=== PATIENT | male | born 1955 | race Caucasian/White ===

== ENCOUNTER 2016-02-26 16:27 | Emergency (ER) | payer BC ==
[2016-02-26 17:08] LABS: #Basophils 0.1 thou/uL (0.0-0.2); #Eosinphils 0.1 thou/uL (0.0-0.7); #Monocytes 0.7 thou/uL (0.11-0.59); #Neutrophils 6.5 thou/uL (1.40-6.50); %Basophils 0.7 % (0.0-1.0); %Eosinophils 0.7 % (0.0-10.0); %Monocytes 7.7 % (0.0-10.0); Hematocrit 51.1 % (42.0-52.0); Mean Platelet Volume 8.1 fL (7.4-10.4); Red Blood Cell (RBC) Count 5.62 mill/uL (4.70-6.10); White Blood Cell (WBC) Count 9.4 thou/uL (4.8-10.8)
[2016-02-26 17:23] LABS: ALT (SGPT) 37 U/L (0-55); AST (SGOT) 24 U/L (5-34); Alkaline Phosphatase 102 U/L (40-150); Anion Gap 16 mmol/L (10-20); BUN (Urea Nitrogen) 15 mg/dL (8.4-25.7); Bilirubin, Total 1.1 mg/dL (0.2-1.2); Calc. Creatinine Clearance 0 mL/min (70-130); Calcium 9.5 mg/dL (7.8-10.44); Carbon Dioxide 22 mmol/L (23-31); Chloride 101 mmol/L (98-107); Estimated GFR-MDRD 66; Globulin 3.3 g/dL (2.4-3.5); Protein, Total 7.2 g/dL (5.8-8.1)
[2016-02-26 17:30] LABS: Troponin I 0.016 ng/mL (< 0.028)
[2016-02-26 17:44] LABS: Bilirubin Negative (Negative); Blood, Urine Negative (Negative); Glucose, Urine (Dipstick) 500 mg/dL (Negative); Ketone, Urine Negative (Negative); Nitrite Negative (Negative); Protein, Urine (Dipstick) Negative (Neg-Trace); Urobilinogen 0.2 mg/dL (0.2-1.0)
[2016-02-26 17:45] LABS: RBC/HPF None Seen HPF (0-3)
[2016-02-26 17:46] LABS: Bacteria/HPF None Seen HPF (None Seen); Squamous Epithelial None Seen HPF (0-3); WBC/HPF None Seen HPF (0-3)
--- NOTE | 2016-02-26 18:50 | ERRECORD ---
[facility] EMERGENCY RECORD HPI WEAK-DIZZY (16:46 WMEI) CHIEF COMPLAINT: Patient presents for evaluation of weakness, Denies dizziness, Denies mental status changes, Patient presents for evaluation of shaky x 5 days. HISTORIAN: History provided by patient, niddm doesn't check sugars at home. LOCATION: Symptoms are generalized. QUALITY: Patient is alert and oriented to person, place and time, Ilda coma score is 15. TIME COURSE: Gradual onset of symptoms, 5, days priror to arrival. ASSOCIATED WITH: No associated chest pain, No associated fever, No associated headache, No associated upper respiratory infection. EXACERBATED BY: Patient's condition exacerbated by nothing. RELIEVED BY: Patient's condition relieved by nothing. ROS (16:47 WMEI) CONSTITUTIONAL: Historian denies chills, denies fever, reports weakness. EYES: Historian denies eye pain, denies eye discharge. ENT: Historian denies otalgia, reports rhinorrhea, denies sore throat. CARDIOVASCULAR: Historian denies chest pain, no radiation. RESPIRATORY: Historian denies cough, denies shortness of breath. GI: Historian denies abdominal pain, reports appetite changes. MUSCULOSKELETAL: Historian denies back pain, denies injury. SKIN: Historian reports skin changes, reports skin lesions. chronic fungal skin infection. NEUROLOGIC: Historian denies confusion, denies dizziness, denies mental status changes. PSYCHIATRIC: Historian denies alcohol abuse, reports anxiety, denies depression. PAST MEDICAL HISTORY (16:34 CTUR) MEDICAL HISTORY: Flu vaccine not up to date, Tetanus not up to date, Pneumococcal vaccine not up to date, Flu vaccine not up to date, Tetanus not up to date, Pneumococcal vaccine not up to date, Past medical history includes history of diabetes, hx of angioedema, Past medical history includes history of hypertension. Past medical history includes history of diabetes, hx of angioedema, Past medical history includes history of hypertension, Past medical history includes history of diabetes, Past medical history includes history of hypertension, which has been treated, Patient is compliaNT. 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 reviewed 02/01/15. verified 02/26/16. MALE SURGICAL HISTORY: heart cath twenty years ago. CARDIAC CATH. reviewed 02/01/15. 02/26/16. PSYCHIATRIC HISTORY: No previous psychiatric history. No previous psychiatric history. reviewed 02/01/15. verified 02/26/16. &a-1R&a+25V*p+0X*f7129R*c202B*c15G*c2P*p-0X&a-25V&a+1R Name: Berto Romo : 1955 M61 MedRec: [id number] AcctNum: [id number] Prepared: Angelina Feb 26, 2016 21:54 by Interface Page 1 of 3 pMD [facility] EMERGENCY RECORD SOCIAL HISTORY: Patient denies alcohol use, Patient denies drug use, Patient has no smoking history. Patient denies alcohol use, Patient denies drug use, Patient has no smoking history. reviewed 02/01/15. verified 02/26/16. KNOWN ALLERGIES No Known Allergies (Unconfirmed) No Known Drug Allergies CURRENT MEDICATIONS (16:35 CTUR) hydrochlorothiazide: TABLET : Strength - 25 mg : ORAL Patient Dose: 25 mg Oral once a day. omeprazole: CAPSULE,DELAYED RELEASE (ENTERIC COATED) : Strength - 20 mg : ORAL Patient Dose: 40 mg Oral once a day. VITAL SIGNS VITAL SIGNS: Pulse: 114, Resp: 24, Temp: 98.7 (Oral), Pain: 0, O2 sat: 96 on Room Air, Time: 02/26/2016 16:31. (16:31 CTUR) BP: 139/93, Time: 02/26/2016 16:35. (16:35 CTUR) BP: 116/83, Pulse: 101, Resp: 20, Pain: 0, O2 sat: 96 on Room Air, Time: 02/26/2016 17:09. (17:09 CTUR) BP: 109/87, Pulse: 103, Resp: 18, Temp: 98.3 (Oral), Pain: 0, O2 sat: 96 on Room Air, Time: 02/26/2016 18:39. (18:39 CTUR) PHYSICAL EXAM (16:48 WMEI) CONSTITUTIONAL: Vital signs reviewed, Patient appears non toxic, Patient alert and oriented to person, place and time. HEAD: Head exam included findings of head atraumatic, normocephalic. EYES: Extraocular muscles intact, Conjunctiva normal, Sclera normal. ENT: Ear exam normal, Nose exam normal, Pharynx exam normal. NECK: Neck exam included findings of normal range of motion, Trachea midline. RESPIRATORY CHEST: Breath sounds clear, Rales present, Chest exam included findings of chest movement symmetrical. CARDIOVASCULAR: Cardiovascular exam included findings of heart rate regular rate and rhythm, Heart sounds normal. ABDOMEN MALE: Abdominal exam included findings of abdomen nontender, Bowel sounds normal, no distension. UPPER EXTREMITY: Upper extremity exam included findings of inspection normal, Range of motion normal, Motor strength normal. LOWER EXTREMITY: Lower extremity exam included findings of inspection normal, Range of motion normal, Motor strength normal. NEURO: Ilda coma scale 15, Neuro exam findings include patient oriented to person, place and time, Speech normal, Gait normal. SKIN: Skin exam included findings of skin warm, dry, and normal in color. &a-1R&a+25V*p+0X*u1450R*c202B*c15G*c2P*p-0X&a-25V&a+1R Name: Berto Romo : 1955 M61 MedRec: [id number] AcctNum: [id number] Prepared: Angelina Feb 26, 2016 21:54 by Interface Page 2 of 3 pMD [facility] EMERGENCY RECORD LYMPHATIC: Lymphatic exam normal. PSYCHIATRIC: Psychiatric exam included findings of patient oriented to person place and time, Normal affect, Judgment normal, Insight normal. MEDICATION ADMINISTRATION SUMMARY Drug Name: *sodium chloride 0.9 % intravenous, Dose Ordered: 1 L, Route: IV Fluid Infusion, Status: Given, Time: 17:00 02/26/2016, *Additional information available in notes, Detailed record available in Medication Service section. DOCTOR NOTES (18:23 WMEI) TEXT: feels better encouraged to drink fluids. PROBLEM LIST No recorded problems DIAGNOSIS (18:23 WMEI) FINAL: PRIMARY: MUSCLE WEAKNESS GENERALIZED, ADDITIONAL: DEHYDRATION. PRESCRIPTION No recorded prescriptions DISPOSITION PATIENT: Disposition Type: Discharge, Disposition: *Discharge Home. (18:23 WMEI) Patient left the department. (18:40 CTUR) Falk: CTUR=SCOUT Crespo Christin WMEI=DO Lai William &a-1R&a+25V*p+0X*x1311V*c202B*c15G*c2P*p-0X&a-25V&a+1R Name: Berto Romo : 1955 M61 MedRec: [id number] AcctNum: [id number] Prepared: Angelina Feb 26, 2016 21:54 by Interface Page 3 of 3 pMD MTDD
--- NOTE | 2016-02-26 18:59 | PICIS ---
[facility] EMERGENCY RECORD TRIAGE (16:30 CTUR) TRIAGE NOTES: Pt reports feeling shaky and having high blood sugar since noon, pt reports he has only eaten one egg, four pieces of spam and a slice of bread. Deneis vision problems. (16:30 CTUR) PATIENT: NAME: Berto Romo, AGE: 61, GENDER: male, : Sun 1955, TIME OF GREET: Sun Feb 26, 2016 16:28, PREFERRED LANGUAGE: Indian, ETHNICITY: Not or , ECODE BILLING MAP: [facility], SSN: [id number], Zip Code: [address], PHONE: , , , PERSON ID: [id number], PAYMENT: [employer] [place]. (16:30 CTUR) KG WEIGHT: 95.3 (est.). (16:48 LFOS) ADMISSION: URGENCY: 3 Urgent, ADMISSION SOURCE: Home, TRANSPORT: CAR, BED: TRIAGE. (16:30 CTUR) SIRS SCORING: Heart Rate 110-139 (2), Temp range 96.8-101.1 (0), respiratory rate 12-24 (0), Mental Status altered: no (0), Total SIRS Score 2. (16:34 CTUR) TRIAGE SCREENING: Patient denies suicidal ideation, Patient denies presence of domestic violence. (16:34 CTUR) PROVIDERS: TRIAGE NURSE: Rohini Crespo RN. (16:30 CTUR) VITAL SIGNS: Pulse 114, Resp 24, Temp 98.7, (Oral), Pain 0, O2 Sat 96, on Room Air, Time 02/26/2016 16:31. (16:31 CTUR) PREVIOUS VISIT ALLERGIES: No Known Drug Allergies. (16:30 CTUR) No Known Drug Allergies. (16:34 CTUR) KNOWN ALLERGIES No Known Allergies (Unconfirmed) No Known Drug Allergies CURRENT MEDICATIONS (16:35 CTUR) hydrochlorothiazide: TABLET : Strength - 25 mg : ORAL Patient Dose: 25 mg Oral once a day. omeprazole: CAPSULE,DELAYED RELEASE (ENTERIC COATED) : Strength - 20 mg : ORAL Patient Dose: 40 mg Oral once a day. VITAL SIGNS VITAL SIGNS: Pulse: 114, Resp: 24, Temp: 98.7 (Oral), Pain: 0, O2 sat: 96 on Room Air, Time: 02/26/2016 16:31. (16:31 CTUR) BP: 139/93, Time: 02/26/2016 16:35. (16:35 CTUR) BP: 116/83, Pulse: 101, Resp: 20, Pain: 0, O2 sat: 96 on Room Air, Time: 02/26/2016 17:09. (17:09 CTUR) BP: 109/87, Pulse: 103, Resp: 18, Temp: 98.3 (Oral), Pain: 0, O2 sat: 96 on Room Air, Time: 02/26/2016 18:39. (18:39 CTUR) NURSING ASSESSMENT: FALL RISK (17:32 CTUR) FALL RISK: Fall risk assessment findings include: no history of falls (0), No bed rest greater than 2 days (0), No use of level of &a-1R&a+25V*p+0X*u5112Y*c202B*c15G*c2P*p-0X&a-25V&a+1R Name: Berto Romo : 1955 M61 MedRec: [id number] AcctNum: [id number] Prepared: Angelina Feb 26, 2016 22:00 by Interface Page 1 of 8 pMD [facility] EMERGENCY RECORD consciousness altering agents with mentation or cognitive changes (0), No change in blood pressure (0), Sensory deficits (1), Impaired mobility (3), No neurologic diagnosis (0), No elimination problems (0), No confusion (0), Total score 4. NURSING ASSESSMENT: NEURO (17:06 CTUR) GCS: (6) Obeying command:, (5) Orientated:, (4) Spontaneous eye opening., Result: 15. NIHSS: CVA assessment findings: Level of consciousness: alert, keenly responsive (0), Questions: answers both questions correctly (0), Commands: performs both tasks correctly (0), Best gaze: normal (0), Visual: no visual loss (0), Facial palsy: normal symmetrical movement (0), Motor Left Arm: no drift, arm stays 90/45 degrees for full 10 seconds (0), Motor Right Arm: no drift, arm stays 90/45 degrees for full 10 seconds (0), Motor left leg: no drift, leg stays at 30 degrees for full five seconds (0), Motor right leg: no drift, leg stays at 30 degrees for full five seconds (0), Limb ataxia absent (0), Sensory: normal, no sensory loss (0), Best language: no aphasia; normal (0), Dysarthria: normal (0), Extinction and Inattention: normal (0), Total score 0. CONSTITUTIONAL: Complex assessment performed, Patient arrives ambulatory, Gait steady, History obtained from patient, Patient appears comfortable, Patient cooperative, Patient alert, Oriented to person, place and time, Skin warm, Skin dry, Skin normal in color, Mucous membranes pink, Mucous membranes moist, Patient complains of Weakness/SHaky/Elevated Blood sugar. NONVERBAL PAIN: Non-Verbal pain assessment findings include: No non-verbal complaints while at rest (0), Non-Verbal complaints not present with movement (0), Facial Grimaces not present at rest (0), Facial grimaces not present with movement (0), Bracing not present at rest (0), Bracing not present with movement (0), Restlessness not present at rest (0), Restlessness not present with movement (0), Rubbing not present at rest (0), Rubbing not present with movement (0), Result: 0. NEURO: Pupils equally round and reactive to light, Left pupil 3 mm in size, Right pupil 3 mm in size, Able to close eyes, Face symmetrical, Speech normal, no ptosis, no nystagmus, no visual changes, no facial droop, no facial numbness, no swelling, no paresthesias, Hand grasps equal, Upper extremity strength strong, no numbness to upper extremities, Lower extremity strength strong, Foot press equal, no numbness to lower extremities. SAFETY: Side rails up, Cart/Stretcher in lowest position, Call light within reach, Hospital ID band on. NURSING PROCEDURE: BEDSIDE TESTING PATIENT IDENTIFIER: Patient actively involved in identification process, Patient's identity verified by patient stating name, Patient's identity verified by patient stating date, Patient's identity verified by hospital ID bracelet. (17:52 CTUR) GLUCOSE: Glucose testing indicated for diabetic patient, &a-1R&a+25V*p+0X*x6573V*c202B*c15G*c2P*p-0X&a-25V&a+1R Name: Berto Romo : 1955 M61 MedRec: [id number] AcctNum: [id number] Prepared: Angelina Feb 26, 2016 22:00 by Interface Page 2 of 8 pMD [facility] EMERGENCY RECORD Capillary blood sample, Result (mg/dl) 237. (16:30 LGIB) Glucose testing indicated for diabetic patient, Capillary blood sample, Result (mg/dl) 189. (17:52 CTUR) SAFETY: Side rails up, Cart/Stretcher in lowest position, Call light within reach, Hospital ID band on. (17:52 CTUR) NURSING PROCEDURE: DISCHARGE NOTE (18:39 CTUR) DISCHARGE: Patient discharged to home, ambulating without assistance, driving self, unaccompanied, Summary of Care printed/ provided, Transition record given to patient, Discharge instructions given to patient, Simple or moderate discharge teaching performed, by SCOUT Urbano, Above person(s) verbalized understanding of discharge instructions and follow-up care, Patient treated and evaluated by physician. BELONGINGS: Belongings and valuables with patient upon arrival to the Emergency Department include:, Belongings and valuables with patient at time of discharge include:, Belongings remain with patient, Valuables remain with patient. SAFETY: Side rails up, Cart/Stretcher in lowest position, Call light within reach, Hospital ID band on. NURSING PROCEDURE: IV PATIENT IDENITIFIER: Patient actively involved in identification process, Patient's identity verified by patient stating name, Patient's identity verified by patient stating date, Patient's identity verified by hospital ID bracelet. (16:45 CTUR) IV SITE 1: IV therapy indicated for hydration, IV therapy indicated for medication administration, IV established, to the right forearm, using an 18 gauge catheter, in one attempt, IV site prepped with chloraprep, Saline lock established, Flushed with normal saline (mls): 10, Notes: By SCOUT Saunders. (16:45 CTUR) FOLLOW-UP SITE 1: After procedure, 2x2 dressing applied, IV discontinued, due to patient being discharged, catheter intact. (18:34 CTUR) SAFETY: Side rails up, Cart/Stretcher in lowest position, Call light within reach, Hospital ID band on. (16:45 CTUR) NURSING PROCEDURE: ORTHOSTATIC VITAL SIGNS (17:41 CTUR) PATIENT IDENTIFIER: Patient actively involved in identification process, Patient's identity verified by patient stating name, Patient's identity verified by patient stating date, Patient's identity verified by hospital ID bracelet. ORTHOSTATIC VITAL SIGNS: Orthostatic vital signs indicated for dizziness, Lying:, Blood pressure: 124/89, Pulse: 95, No dizziness, Sitting:, Blood pressure: 153/102, Pulse: 107, No dizziness with position change, Standing:, Blood pressure: 139/103, Pulse: 108, No dizziness with position change, pt tolerated well, Notes: pt tolerated well denies dizzienss. FOLLOW-UP: After procedure, results given to Dr. Lai. SAFETY: Side rails up, Cart/Stretcher in lowest position, Call &a-1R&a+25V*p+0X*q5108A*c202B*c15G*c2P*p-0X&a-25V&a+1R Name: Berto Romo : 1955 M61 MedRec: [id number] AcctNum: [id number] Prepared: Angelina Feb 26, 2016 22:00 by Interface Page 3 of 8 pMD [facility] EMERGENCY RECORD light within reach, Hospital ID band on. NURSING PROCEDURE: URINE COLLECTION (17:36 CTUR) PATIENT IDENTIFIER: Patient actively involved in identification process, Patient's identity verified by patient stating name, Patient's identity verified by patient stating date, Patient's identity verified by hospital ID bracelet. URINE COLLECTION MALE: Urine collected by void, output amount (mL) 400, urine clear in color, and clear, Specimen labeled in the presence of the patient and sent to lab, Specimen obtained for culture labeled in the presence of the patient and sent to lab. SAFETY: Side rails up, Cart/Stretcher in lowest position, Call light within reach, Hospital ID band on. ORDER DETAILS Order Name: Cardiac Profile w/CKMB & Troponin - I, Status: Active, Time: 16:44 02/26/2016, User: WMEI, - Ordered for: DO Lai William, - Entered by: DO Lai William - Angelina Feb 26, 2016 16:44, - Quantity: 1, Order Name: CBC with Differential, Status: Active, Time: 16:44 02/26/2016, User: WMEI, - Ordered for: DO Lai William, - Entered by: DO Lai William - Angelina Feb 26, 2016 16:44, - Quantity: 1, Order Name: Comprehensive Metabolic Panel, Status: Active, Time: 16:44 02/26/2016, User: WMEI, - Ordered for: DO Lai William, - Entered by: DO Lai William - Angelina Feb 26, 2016 16:44, - Quantity: 1, Order Name: EKG 12 Lead in Emergency Room, Status: Active, Time: 16:44 02/26/2016, User: WMEI, - Ordered for: DO Lai William, - Entered by: DO Lai William - Angelina Feb 26, 2016 16:44, - Quantity: 1, Order Name: SALINE LOCK, Status: Done, Time: 16:48 02/26/2016, User: LGIB, - Ordered for: DO Lai William, - Entered by: DO Lai William - Angelina Feb 26, 2016 16:44, - Quantity: 1, Order Name: Urinalysis with Microscopic, Status: Active, Time: 16:45 02/26/2016, User: WMEI, - Ordered for: DO Lai William, - Entered by: DO Lai William - Sun Feb 26, 2016 16:45, - Quantity: 1. MEDICATION ADMINISTRATION SUMMARY Drug Name: *sodium chloride 0.9 % intravenous, Dose Ordered: 1 L, &a-1R&a+25V*p+0X*d6983Z*c202B*c15G*c2P*p-0X&a-25V&a+1R Name: Berto Romo : 1955 M61 MedRec: [id number] AcctNum: [id number] Prepared: Angelina Feb 26, 2016 22:00 by Interface Page 4 of 8 D [facility] EMERGENCY RECORD Route: IV Fluid Infusion, Status: Given, Time: 17:00 02/26/2016, *Additional information available in notes, Detailed record available in Medication Service section. MEDICATION SERVICE sodium chloride 0.9 % intravenous: Order: sodium chloride 0.9 % intravenous (0.9 % sodium chloride) - Dose: 1 L : IV Fluid Infusion Notes: (Bolus) Ordered by: Taj Lai DO Entered by: Taj Lai DO [place] Feb 26, 2016 16:45 , Acknowledged by: Aydee Kincaid RN [place] Feb 26, 2016 16:48 Documented as given by: Rohini Crespo RN [place] Feb 26, 2016 17:00 Patient, Medication, Dose, Route and Time verified prior to administration. Amount given: 1000m:L, IV SITE #1 IV fluids established for hydration, IV SITE #1 into right forearm, IV SITE #1 1st bag hung, amount 1 Liter hung, via primary tubing, Catheter placement confirmed via flush prior to administration, IV site without signs or symptoms of infiltration during medication administration, No swelling during administration, No drainage during administration, IV flushed after administration, Correct patient, time, route, dose and medication confirmed prior to administration, Patient advised of actions and side-effects prior to administration, Allergies confirmed and medications reviewed prior to administration, Patient in position of comfort, Side rails up, Cart in lowest position. : Follow Up : Response assessment performed, No signs or symptoms of allergic reaction noted, Increased urine output, _IV SITE #1:_, IV fluid infusion discontinued, on SatFeb 26, 2016 17:31, 35 minutes, ., Total amount infused: 1000mL, Advised not to ambulate without assistance, Patient in position of comfort, Side rails up, Cart in lowest position. (17:31 CTUR) HPI WEAK-DIZZY (16:46 WMEI) CHIEF COMPLAINT: Patient presents for evaluation of weakness, Denies dizziness, Denies mental status changes, Patient presents for evaluation of shaky x 5 days. HISTORIAN: History provided by patient, niddm doesn't check sugars at home. LOCATION: Symptoms are generalized. QUALITY: Patient is alert and oriented to person, place and time, Ilda coma score is 15. TIME COURSE: Gradual onset of symptoms, 5, days priror to arrival. ASSOCIATED WITH: No associated chest pain, No associated fever, No associated headache, No associated upper respiratory infection. EXACERBATED BY: Patient's condition exacerbated by nothing. RELIEVED BY: Patient's condition relieved by nothing. ROS (16:47 WMEI) &a-1R&a+25V*p+0X*p3066P*c202B*c15G*c2P*p-0X&a-25V&a+1R Name: Berto Romo : 1955 M61 MedRec: [id number] AcctNum: [id number] Prepared: Angelina Feb 26, 2016 22:00 by Interface Page 5 of 8 pMD [facility] EMERGENCY RECORD CONSTITUTIONAL: Historian denies chills, denies fever, reports weakness. EYES: Historian denies eye pain, denies eye discharge. ENT: Historian denies otalgia, reports rhinorrhea, denies sore throat. CARDIOVASCULAR: Historian denies chest pain, no radiation. RESPIRATORY: Historian denies cough, denies shortness of breath. GI: Historian denies abdominal pain, reports appetite changes. MUSCULOSKELETAL: Historian denies back pain, denies injury. SKIN: Historian reports skin changes, reports skin lesions. chronic fungal skin infection. NEUROLOGIC: Historian denies confusion, denies dizziness, denies mental status changes. PSYCHIATRIC: Historian denies alcohol abuse, reports anxiety, denies depression. PAST MEDICAL HISTORY (16:34 CTUR) MEDICAL HISTORY: Flu vaccine not up to date, Tetanus not up to date, Pneumococcal vaccine not up to date, Flu vaccine not up to date, Tetanus not up to date, Pneumococcal vaccine not up to date, Past medical history includes history of diabetes, hx of angioedema, Past medical history includes history of hypertension. Past medical history includes history of diabetes, hx of angioedema, Past medical history includes history of hypertension, Past medical history includes history of diabetes, Past medical history includes history of hypertension, which has been treated, Patient is compliaNT. 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 reviewed 02/01/15. verified 02/26/16. MALE SURGICAL HISTORY: heart cath twenty years ago. CARDIAC CATH. reviewed 02/01/15. 02/26/16. PSYCHIATRIC HISTORY: No previous psychiatric history. No previous psychiatric history. reviewed 02/01/15. verified 1/08/17. SOCIAL HISTORY: Patient denies alcohol use, Patient denies drug use, Patient has no smoking history. Patient denies alcohol use, Patient denies drug use, Patient has no smoking history. reviewed 02/01/15. verified 02/26/16. PHYSICAL EXAM (16:48 WMEI) CONSTITUTIONAL: Vital signs reviewed, Patient appears non toxic, Patient alert and oriented to person, place and time. HEAD: Head exam included findings of head atraumatic, normocephalic. EYES: Extraocular muscles intact, Conjunctiva normal, Sclera normal. ENT: Ear exam normal, Nose exam normal, Pharynx exam normal. NECK: Neck exam included findings of normal range of motion, Trachea midline. RESPIRATORY CHEST: Breath sounds clear, Rales present, &a-1R&a+25V*p+0X*b4483B*c202B*c15G*c2P*p-0X&a-25V&a+1R Name: Berto Romo : 1955 M61 MedRec: [id number] AcctNum: [id number] Prepared: Angelina Feb 26, 2016 22:00 by Interface Page 6 of 8 pMD [facility] EMERGENCY RECORD Chest exam included findings of chest movement symmetrical. CARDIOVASCULAR: Cardiovascular exam included findings of heart rate regular rate and rhythm, Heart sounds normal. ABDOMEN MALE: Abdominal exam included findings of abdomen nontender, Bowel sounds normal, no distension. UPPER EXTREMITY: Upper extremity exam included findings of inspection normal, Range of motion normal, Motor strength normal. LOWER EXTREMITY: Lower extremity exam included findings of inspection normal, Range of motion normal, Motor strength normal. NEURO: [place] coma scale 15, Neuro exam findings include patient oriented to person, place and time, Speech normal, Gait normal. SKIN: Skin exam included findings of skin warm, dry, and normal in color. LYMPHATIC: Lymphatic exam normal. PSYCHIATRIC: Psychiatric exam included findings of patient oriented to person place and time, Normal affect, Judgment normal, Insight normal. EVENTS TRANSFER: Triage to Emergency Triage. (Angelina Feb 26, 2016 16:30 CTUR) Emergency Triage to Emergency Room -03. (16:31 CTUR) Removed from Emergency Emergency Room -03. (18:40 CTUR) DOCTOR NOTES (18:23 WMEI) TEXT: feels better encouraged to drink fluids. PROBLEM LIST No recorded problems DIAGNOSIS (18:23 WMEI) FINAL: PRIMARY: MUSCLE WEAKNESS GENERALIZED, ADDITIONAL: DEHYDRATION. DISPOSITION PATIENT: Disposition Type: Discharge, Disposition: *Discharge Home. (18:23 WMEI) Patient left the department. (18:40 CTUR) INSTRUCTION (18:23 WMEI) DISCHARGE: DEHYDRATION (4Y-ADULT), DIABETES HYPOGLYCEMIA ORAL AGENT. FOLLOWUP: Jose G MCBRIDE, [facility] [address], [facility] [id number], [phone]. SPECIAL: Follow-up with your PCP. PRESCRIPTION No recorded prescriptions IMAGING &a-1R&a+25V*p+0X*a4260J*c202B*c15G*c2P*p-0X&a-25V&a+1R Name: ClarissaAlyssa bryantharlan Tello : 1955 [facility] MedRec: [id number] AcctNum: [id number] Prepared: Angelina Feb 26, 2016 22:00 by Interface Page 7 of 8 pMD [facility] EMERGENCY RECORD *EKG: Image captured from scanner. (17:56 LGIB) *DISCHARGE INSTRUCTIONS RECEIPT: Image captured from scanner. (18:41 CTUR) *SUPPLY CHARGE SHEET: Image captured from scanner. (18:41 CTUR) ADMIN (21:48 WMEI) DIGITAL SIGNATURE: DO Lai William. Falk: CTUR=SCOUT Crespo Christin LFOS=Noe, REGISTRAR, Soheila Michaels LGIB=SCOUT Kincaid Lauren WMEI=DO Lai William &a-1R&a+25V*p+0X*h2120O*c202B*c15G*c2P*p-0X&a-25V&a+1R Name: Clarissa, Berto W : 1955 1 MedRec: [id number] AcctNum: [id number] Prepared: Angelina Feb 26, 2016 22:00 by Interface Page 8 of 8 pMD MTDD
== END 2016-02-26 18:35 | disposition home or self-care (01) ==
LOC: BURERS 16:27
DX: M62.81 Muscle weakness (generalized) (principal); E86.0 Dehydration; E11.9 Type 2 diabetes mellitus without complications; I10 Essential (primary) hypertension; K21.9 Gastro-esophageal reflux disease without esophagitis
CPT/HCPCS: 36416; 80053; 81001; 82553; 84484; 85025; 93005; 96360

== ENCOUNTER 2016-02-28 08:54 | Emergency (ER) | payer BC ==
[2016-02-28] MEDS ORDERED: Ondansetron ODT 4 MG TAB ONE (09:20)
[2016-02-28 10:05] LABS: #Basophils 0.1 thou/uL (0.0-0.2); #Lymphocytes 1.4 thou/uL (1.20-3.40); #Monocytes 0.8 thou/uL (0.11-0.59); #Neutrophils 8.1 thou/uL (1.40-6.50); %Basophils 0.6 % (0.0-1.0); %Eosinophils 0.3 % (0.0-10.0); %Monocytes 7.6 % (0.0-10.0); Hematocrit 47.3 % (42.0-52.0); Mean Platelet Volume 8.6 fL (7.4-10.4); Red Blood Cell (RBC) Count 5.21 mill/uL (4.70-6.10); White Blood Cell (WBC) Count 10.3 thou/uL (4.8-10.8)
[2016-02-28 10:08] LABS: Bilirubin Negative (Negative); Blood, Urine Negative (Negative); Glucose, Urine (Dipstick) Negative (Negative); Ketone, Urine 15 mg/dL (Negative); Nitrite Negative (Negative); Protein, Urine (Dipstick) Negative (Neg-Trace); Urobilinogen 0.2 mg/dL (0.2-1.0)
[2016-02-28 10:18] LABS: ALT (SGPT) 34 U/L (0-55); AST (SGOT) 26 U/L (5-34); Alkaline Phosphatase 91 U/L (40-150); Anion Gap 15 mmol/L (10-20); BUN (Urea Nitrogen) 12 mg/dL (8.4-25.7); Bilirubin, Total 1.3 mg/dL (0.2-1.2); Calc. Creatinine Clearance 0 mL/min (70-130); Calcium 9.3 mg/dL (7.8-10.44); Carbon Dioxide 21 mmol/L (23-31); Chloride 98 mmol/L (98-107); Estimated GFR-MDRD Greater than 90; Globulin 3.2 g/dL (2.4-3.5); Lipase 32 U/L (8-78); Protein, Total 7.1 g/dL (5.8-8.1); Troponin I Less than 0.010 ng/mL (< 0.028)
[2016-02-28 10:19] LABS: RBC/HPF 0-3 HPF (0-3)
[2016-02-28 10:21] LABS: Bacteria/HPF Rare-Few HPF (None Seen); Squamous Epithelial 0-3 HPF (0-3); WBC/HPF 0-3 HPF (0-3)
--- NOTE | 2016-02-28 10:56 | ERRECORD ---
[facility] EMERGENCY RECORD HPI NAUSEA/VOMITING/DIARRHEA (09:18 DHA) CHIEF COMPLAINT: Patient presents for evaluation of nausea, Patient presents for evaluation of vomiting, Number of times: 4 this am, dry heaves, Patient presents for evaluation of diarrhea, Number of times: 4 times yesterday, described as watery stools, Patient presents for evaluation of dry mouth. HISTORIAN: History provided by patient. LOCATION MALE: Symptoms are localized, most severe in the epigastrium, no radiation, No migration of pain. QUALITY: Pain is dull in nature, described as cramping. SEVERITY: Currently there are no symptoms. TIME COURSE: Gradual onset of symptoms, 4, days priror to arrival, Symptoms are improving, are intermittent, Pt is here for his 4th visit in the last 5 days. Started with just feeling shaky and yesterday was seen with diarrhea and had "lots of tests done at [facility]." He is here this morning due to 4 episodes of emesis that he says was dry heaves. ASSOCIATED WITH MALE: No associated recent antibiotic use, No associated chills, No associated constipation, Associated with diarrhea, Number of times: 4 yest, No associated fever, No associated flank pain, No associated loss of appetite, No associated melena, Associated with nausea, No associated night sweats, No associated testicular pain, No associated recent travel, No associated inability to tolerate oral intake, No associated urinary tract infection signs or symptoms, Associated with vomiting, Number of times: 4 this morning, ate 2 eggs and a piece of steak this morning and "lots of water last night". EXACERBATED BY: Patient's condition exacerbated by food. RELIEVED BY: Patient's condition relieved by nothing. ROS (09:18 [facility]) CONSTITUTIONAL: Historian denies chills, denies fatigue, denies fever. had some sweats early this morning but does not think he had a fever. EYES: Negative eye review of systems, Historian denies eye pain, denies eye redness. ENT: Negative ears, nose, throat review of systems. CARDIOVASCULAR: Historian denies chest pain, denies dyspnea on exertion, denies syncope. RESPIRATORY: Historian denies cough, denies shortness of breath, denies sputum. GI: Historian reports abdominal pain, reports appetite changes, reports diarrhea, reports nausea, reports vomiting. GENITOURINARY MALE: Historian denies dysuria, denies urinary frequency, denies urinary urgency. MUSCULOSKELETAL: Historian denies arthralgias, denies myalgias, denies neck pain. &a-1R&a+25V*p+0X*[id number]*c202B*c15G*c2P*p-0X&a-25V&a+1R Name: Berto Romo : 1955 M61 MedRec: [id number] AcctNum: [id number] Prepared: Elza Feb 28, 2016 20:02 by Interface Page 1 of 4 pMD [facility] EMERGENCY RECORD SKIN: Historian denies cellulitis, reports rash, reports skin lesions. rash on bilat arms has been there for 1-2 years and may be spreading a bit. does not itch. occas scaly at the borders. NEUROLOGIC: Historian denies confusion, denies headache, denies paresthesias. PSYCHIATRIC: Historian denies anxiety, denies depression. NOTES: All systems reviewed, negative except as described above. PAST MEDICAL HISTORY (: LGIB) MEDICAL HISTORY: Past medical history includes gastrointestinal disease, gastroesophageal reflux disease, Flu vaccine not up to date, Tetanus not up to date, Pneumococcal vaccine not up to date, Past medical history includes history of diabetes, hx of angioedema, Past medical history includes history of hypertension. MALE SURGICAL HISTORY: heart cath twenty years ago. PSYCHIATRIC HISTORY: No previous psychiatric history. SOCIAL HISTORY: Patient denies alcohol use, Patient denies drug use, Patient has no smoking history. KNOWN ALLERGIES No Known Drug Allergies CURRENT MEDICATIONS hydrochlorothiazide: TABLET : Strength - 25 mg : ORAL Patient Dose: 25 mg Oral once a day. (: LGIB) omeprazole: CAPSULE,DELAYED RELEASE (ENTERIC COATED) : Strength - 20 mg : ORAL Patient Dose: 40 mg Oral once a day. (: LGIB) metFORMIN: TABLET, EXTENDED RELEASE 24 HR : Strength - 500 mg : ORAL Patient Dose: 1 tab(s) Oral once a day.2 tabs at night. (: LGIB) Benadryl: CAPSULE : Strength - 25 mg : ORAL Patient Dose: 2 tab(s) Oral every 4 hours prn. (: LGIB) VITAL SIGNS VITAL SIGNS: BP: 164/105, Pulse: 99, Resp: 18 (Non-Labored), O2 sat: 97 on Room Air, Time: 02/28/2016 08:59. (08:59 [facility]) Temp: 98 (Oral), Time: 02/28/2016 09:05. (09:05 [facility]) Pain: 1.5, Time: 02/28/2016 09:21. (09:21 [facility]) BP: 114/92, Pulse: 93, Resp: 18, O2 sat: 97, Time: 02/28/2016 10:04. (10:04 ASA) BP: 131/88, Pulse: 99, Resp: 18, Temp: 98.0, Pain: 1, O2 sat: 99, Time: 02/28/2016 10:43. (10:43 [facility]) PHYSICAL EXAM (09:18 [facility]) &a-1R&a+25V*p+0X*[id number]*c202B*c15G*c2P*p-0X&a-25V&a+1R Name: Berto Romo Omer : 1955 M61 MedRec: [id number] AcctNum: [id number] Prepared: Elza Feb 28, 2016 20:02 by Interface Page 2 of 4 pMD [facility] EMERGENCY RECORD CONSTITUTIONAL: Vital signs reviewed, Patient afebrile, Pulse normal, Blood pressure, hypertensive, Respiratory rate normal, Patient appears non toxic, Patient appears pain free, Patient alert and oriented to person, place and time, seems a bit anxious. HEAD: Head exam normal, Head exam included findings of head atraumatic. EYES: Eye exam included findings of eyelids normal to inspection, Pupils equally round and reactive to light, Extraocular muscles intact, Conjunctiva normal. ENT: Ear exam normal, external ear normal, tympanic membranes normal, no drainage, Nose exam normal, no nasal deformity, Pharynx exam normal, Uvula exam normal, Tonsil exam normal, Mouth exam normal, mucous membranes moist, teeth normal, no nasal congestion or rhinorrhea. NECK: Neck exam normal, Neck exam included findings of normal range of motion, Thyroid normal, no jugular venous distention, no cervical adenopathy. RESPIRATORY CHEST: Breath sounds clear, No wheezing, Rales present, to the left lower lobe, No rhonchi, Breath sounds otherwise clear. CARDIOVASCULAR: Cardiovascular exam included findings of heart rate regular rate and rhythm, Heart sounds normal, Point of maximal impulse normal. ABDOMEN MALE: Abdominal exam included findings of abdomen nontender, Bowel sounds normal, Liver normal, Spleen normal, no distension, no mass, no peritoneal signs. UPPER EXTREMITY: Upper extremity exam normal, Radial pulse normal. LOWER EXTREMITY: Lower extremity exam normal, Lower extremity exam included findings of inspection normal, Range of motion normal. NEURO: [place] coma scale 15, Neuro exam findings include patient oriented to person, place and time, Speech normal, Gait normal, Cranial nerves intact. SKIN: Skin exam included findings of skin warm, dry, and normal in color, Rash present, bilat forearms with irregular raised erythematous bordered lesions. there is no scaling at this time but remarkable central clearing of these circular lesions. borders are very well demarcated and this central clearing almost appears atrophic and hypopigmented. the lesions are 8-12cm in diameter and irregular and number 8-10 on each forearm with sparing of the palms. PSYCHIATRIC: Psychiatric exam included findings of patient oriented to person place and time, Normal affect, Judgment normal, Insight normal. EKG INTERPRETATION (09:40 DHAM) 12 LEAD EKG INTERPRETATION: 12 lead EKG interpreted by Emergency Department Physician at time of study, 12 lead EKG shows normal sinus rhythm, Rate (beats per minute): 100, with no ectopics, Conduction &a-1R&a+25V*p+0X*d7006V*c202B*c15G*c2P*p-0X&a-25V&a+1R Name: Berto Rmoo : 1955 M61 MedRec: [id number] AcctNum: [id number] Prepared: SatFeb 28, 2016 20:02 by Interface Page 3 of 4 pMD [facility] EMERGENCY RECORD normal, ST segments normal, T waves normal, [place] normal, Clinical impression: Normal EKG. RADIOLOGYINTERPRETATION (09:44 [facility]) CHEST: Chest films negative, no infiltrates, no pneumothorax, no hemothorax, no masses, no cardiomegaly, no congestive heart failure, no effusion, no free air, elevated right hemidiaphragm. ABDOMEN: Obstructive series films negative, normal small bowel gas pattern, no air fluid levels, no free air. MEDICATION ADMINISTRATION SUMMARY Drug Name: *Zofran ODT, Dose Ordered: 1 tab(s), Route: Oral, Status: Given, Time: 09:21 02/28/2016, *Additional information available in notes, Detailed record available in Medication Service section. DOCTOR NOTES (10:32 DHAM) TEXT: Pt's labs, xrays and ekg are pretty reassuring. His Na is low and he tells me this has occurred previously. I suspect due to hctz with oral fluid replacement with water only. will increase sodium intake and recheck 48 hours. see dci. Pt appears euvolemic and really was not nauseated though I did give some Zofran due to his n/v this morning. PROBLEM LIST No recorded problems DIAGNOSIS (10:38 DHAM) FINAL: PRIMARY: viral gastroenteritis, ADDITIONAL: Hyponatremia, tinea corporis. PRESCRIPTION (10:39 DHAM) Zofran ODT: TABLET, RAPID DISSOLVE : 4 mg : ORAL : Quantity: 4 Unit: mg Route: ORAL Schedule: every 6 hours PRN Dispense: 10 Unit: tab(s) May substitute. Refills: No Refills . NOTES: Zofran 4mg ODT take 1 tab q6h prn No refills. DISPOSITION PATIENT: Disposition Type: Discharge, Disposition: *Discharge Home. (10:35 DHA) Patient left the department. (10:47 [facility]) Falk: [facility]=SCOUT Shaikh, May [facility]=MD Gume, Jaziel [facility]=SCOUT Kincaid, Aydee &a-1R&a+25V*p+0X*[id number]*c202B*c15G*c2P*p-0X&a-25V&a+1R Name: Berto Romo : 1955 M61 MedRec: [id number] AcctNum: [id number] Prepared: Elza Feb 28, 2016 20:02 by Interface Page 4 of 4 pMD MTDD
--- NOTE | 2016-02-28 11:07 | PICIS ---
[facility] EMERGENCY RECORD TRIAGE (SatFeb 28, 2016 09:00 LGIB) TRIAGE NOTES: can't keep any food down since this morning. was seen in the ER 2 days ago. (SatFeb 28, 2016 09:00 LGIB) PATIENT: NAME: Berto Romo, AGE: 61, GENDER: male, : Sat1955, TIME OF GREET: SatFeb 28, 2016 08:55, PREFERRED LANGUAGE: Egyptian, ETHNICITY: Not or , ECODE BILLING MAP: [facility], SSN: [id number], Zip Code: [address], KG WEIGHT: [phone], PHONE: , , , PERSON ID: [id number], PAYMENT: [employer], PCP: Jose G MCBRIDE STEPHEN. (SatFeb 28, 2016 09:00 LGIB) COMPLAINT: vomiting. (SatFeb 28, 2016 09:00 LGIB) ADMISSION: URGENCY: 3 Urgent, ADMISSION SOURCE: Home, TRANSPORT: CAR, BED: TRIAGE. (SatFeb 28, 2016 09:00 LGIB) SIRS SCORING: Heart Rate 55-109 (0), Temp range 96.8-101.1 (0), respiratory rate 12-24 (0), Mental Status altered: no (0), Total SIRS Score 0. (09:05 LGIB) PROVIDERS: TRIAGE NURSE: Aydee Kincaid RN. (SatFeb 28, 2016 09:00 LGIB) VITAL SIGNS: BP 164/105, Pulse 99, Resp 18, (Non-Labored), O2 Sat 97, on Room Air, Time 02/28/2016 08:59. (08:59 LGIB) PREVIOUS VISIT ALLERGIES: No Known Drug Allergies. (SatFeb 28, 2016 09:00 LGIB) No Known Drug Allergies. (09:10 LGIB) KNOWN ALLERGIES No Known Drug Allergies CURRENT MEDICATIONS hydrochlorothiazide: TABLET : Strength - 25 mg : ORAL Patient Dose: 25 mg Oral once a day. (09:21 LGIB) omeprazole: CAPSULE,DELAYED RELEASE (ENTERIC COATED) : Strength - 20 mg : ORAL Patient Dose: 40 mg Oral once a day. (09:21 LGIB) metFORMIN: TABLET, EXTENDED RELEASE 24 HR : Strength - 500 mg : ORAL Patient Dose: 1 tab(s) Oral once a day.2 tabs at night. (09:21 LGIB) Benadryl: CAPSULE : Strength - 25 mg : ORAL Patient Dose: 2 tab(s) Oral every 4 hours prn. (09:22 LGIB) VITAL SIGNS VITAL SIGNS: BP: 164/105, Pulse: 99, Resp: 18 (Non-Labored), O2 sat: 97 on Room Air, Time: 02/28/2016 08:59. (08:59 LGIB) Temp: 98 (Oral), Time: 02/28/2016 09:05. (09:05 LGIB) Pain: 1.5, Time: 02/28/2016 09:21. (09:21 LGIB) BP: 114/92, Pulse: 93, Resp: 18, O2 sat: 97, Time: 02/28/2016 10:04. (10:04 ASA) BP: 131/88, Pulse: 99, Resp: 18, Temp: 98.0, Pain: 1, O2 sat: 99, Time: &a-1R&a+25V*p+0X*b1141I*c202B*c15G*c2P*p-0X&a-25V&a+1R Name: Berto Romo : 1955 M61 MedRec: [id number] AcctNum: [id number] Prepared: Elza Feb 28, 2016 20:02 by Interface Page 1 of 10 pMD [facility] EMERGENCY RECORD 02/28/2016 10:43. (10:43 [facility]) NURSING ASSESSMENT: ABDOMEN (09:26 ASA) CONSTITUTIONAL: Patient arrives ambulatory, Gait steady, History obtained from patient, Patient appears comfortable, Patient cooperative, Patient alert, Oriented to person, place and time, Skin warm, Skin normal in color, Mucous membranes pink, Patient complains of Nausa and vomiting. PAIN: cramping pain, entire abdomin, on a scale 0-10 patient rates pain as 1, Pain exacerbated by nothing, Nothing has been tried to alleviate the pain. ABDOMEN: Abdomen assessment findings include abdomen symmetrical, Abdomen soft, Associated with nausea, Associated with vomiting. SAFETY: Side rails up, Cart/Stretcher in lowest position, Call light within reach, Hospital ID band on. NURSING PROCEDURE: BEDSIDE TESTING (09:47 ASA) PATIENT IDENTIFIER: Patient actively involved in identification process, Patient's identity verified by patient stating name, Patient's identity verified by patient stating date, Patient's identity verified by hospital ID bracelet. GLUCOSE: Glucose testing indicated for diabetic patient, Capillary blood sample, Result (mg/dl) 140. SAFETY: Side rails up, Cart/Stretcher in lowest position, Call light within reach, Hospital ID band on. NURSING PROCEDURE: DISCHARGE NOTE (10:43 ASA) DISCHARGE: Patient discharged to home, ambulating without assistance, driving self, unaccompanied, Summary of Care printed/ provided, Patient requested and was provided an electronic copy of Discharge Instructions, Discharge instructions given to patient, Simple or moderate discharge teaching performed, by ester, rn, Prescriptions given and instructions on side effects given, Name of prescription(s) given: zofran 4mg ODT, Above person(s) verbalized understanding of discharge instructions and follow-up care. SAFETY: Side rails up, Cart/Stretcher in lowest position, Call light within reach, Hospital ID band on. VITAL SIGNS: BP: 131, / 88, Pulse: 99, Resp: 18, Temp: 98.0, Pain: 1, O2 sat: 99, Time: 1039. NURSING PROCEDURE: EKG CHART (09:44 ASA) PATIENT IDENTIFIER: Patient actively involved in identification process, Patient's identity verified by patient stating name, Patient's identity verified by patient stating date, Patient's identity verified by hospital ID bracelet. EKG: EKG indicated for Nausea and Vomiting. FOLLOW-UP: After procedure, EKG for interpretation given to Dr. Dunaway. SAFETY: Side rails up, Cart/Stretcher in lowest position, Call &a-1R&a+25V*p+0X*j7471P*c202B*c15G*c2P*p-0X&a-25V&a+1R Name: Berto Romo Omer : 1955 M61 MedRec: [id number] AcctNum: [id number] Prepared: Elza Feb 28, 2016 20:02 by Interface Page 2 of 10 pMD [facility] EMERGENCY RECORD light within reach, Hospital ID band on. NURSING PROCEDURE: NURSE NOTES (10:04 [facility]) VITAL SIGNS: BP: 114, / 92, Pulse: 93, Resp: 18, O2 sat: 97. NURSING PROCEDURE: URINE COLLECTION (09:46 [facility]) PATIENT IDENTIFIER: Patient actively involved in identification process, Patient's identity verified by patient stating name, Patient's identity verified by patient stating date, Patient's identity verified by hospital ID bracelet. URINE COLLECTION MALE: Urine collection indicated for Nausea and Vomiting, Urine collected by void, output amount (mL) 25 ml, urine clear in color, and clear, Specimen labeled in the presence of the patient and sent to lab. SAFETY: Side rails up, Cart/Stretcher in lowest position, Call light within reach, Hospital ID band on. ORDER DETAILS Order Name: BLOOD GLUCOSE MONITOR, Status: Done, Time: 09:22 02/28/2016, User: YANETH, - Ordered for: MD Dunaway Darren, - Entered by: MD Dunaway Darren - Tue Feb 28, 2016 09:16, - Quantity: 1, Order Name: Cardiac Profile w/CKMB & Troponin - I, Status: Active, Time: 09:16 02/28/2016, User: GUS, - Ordered for: MD Dunaway Darren, - Entered by: MD Dunaway Darren - Tue Feb 28, 2016 09:16, - Quantity: 1, Order Name: CBC with Differential, Status: Active, Time: 09:16 02/28/2016, User: GUS, - Ordered for: MD Dunaway Darren, - Entered by: MD Dunaway Darren - Tue Feb 28, 2016 09:16, - Quantity: 1, Order Name: Comprehensive Metabolic Panel, Status: Active, Time: 09:16 02/28/2016, User: GUS, - Ordered for: MD Dunaway Darren, - Entered by: MD Dunaway Darren - Tue Feb 28, 2016 09:16, - Quantity: 1, Order Name: EKG 12 Lead in Emergency Room, Status: Active, Time: 09:16 02/28/2016, User: GUS, - Ordered for: MD Dunaway Darren, - Entered by: MD Dunaway Darren - Tue Feb 28, 2016 09:16, - Quantity: 1, Order Name: ERRT Pulse Oximeter ER, Status: Active, Time: 09:16 02/28/2016, User: GUS, - Ordered for: MD Dunaway Darren, - Entered by: MD Dunaway Darren - Tue Feb 28, 2016 09:16, - Quantity: 1, Order Name: Lipase, Status: Active, Time: 09:16 02/28/2016, User: &a-1R&a+25V*p+0X*q5682J*c202B*c15G*c2P*p-0X&a-25V&a+1R Name: Berto Romo : 1955 M61 MedRec: [id number] AcctNum: [id number] Prepared: SatFeb 28, 2016 20:02 by Interface Page 3 of 10 pMD [facility] EMERGENCY RECORD GUS, - Ordered for: MD Dunaway Darren, - Entered by: MD Dunaway Darren - Tue Feb 28, 2016 09:16, - Quantity: 1, Order Name: SALINE LOCK, Status: Canceled, Time: 09:23 02/28/2016, User: MORRISIB, - Ordered for: MD Dunaway Darren, - Entered by: MD Dunaway Darren - Tue Feb 28, 2016 09:16, - Quantity: 1, Order Name: Urinalysis with Microscopic, Status: Active, Time: 09:16 02/28/2016, User: GUS, - Ordered for: MD Dunaway Darren, - Entered by: MD Dnuaway Darren - Tue Feb 28, 2016 09:16, - Quantity: 1, Order Name: XR Abdomen 2 View/1 View Cxr, Status: Active, Time: 09:18 02/28/2016, User: GUS, - Ordered for: MD Dunaway Darren, - Entered by: MD Dunaway Darren - Tue Feb 28, 2016 09:18, - Quantity: 1. MEDICATION ADMINISTRATION SUMMARY Drug Name: *Zofran ODT, Dose Ordered: 1 tab(s), Route: Oral, Status: Given, Time: 09:21 02/28/2016, *Additional information available in notes, Detailed record available in Medication Service section. MEDICATION SERVICE Zofran ODT: Order: Zofran ODT (ondansetron) - Dose: 1 tab(s) : Oral Schedule: Now Notes: 4mg now SL Ordered by: Jaziel Dunaway MD Entered by: Jaziel Dunaway MD SatFeb 28, 2016 09:16 , Acknowledged by: Ester Shaikh RN SatFeb 28, 2016 09:19 Documented as given by: Ester Shaikh RN SatFeb 28, 2016 09:21 Patient, Medication, Dose, Route and Time verified prior to administration. Amount given: 4mg, Amount wasted: 0, Site: Medication administered P.O., Correct patient, time, route, dose and medication confirmed prior to administration, Patient advised of actions and side-effects prior to administration, Allergies confirmed and medications reviewed prior to administration, Patient in position of comfort, Side rails up, Cart in lowest position. : Follow Up : No signs or symptoms of allergic reaction noted. (10:43 [facility]) HPI NAUSEA/VOMITING/DIARRHEA (09:18 [facility]) CHIEF COMPLAINT: Patient presents for evaluation of nausea, Patient presents for evaluation of vomiting, Number of times: 4 this am, dry heaves, &a-1R&a+25V*p+0X*y3005L*c202B*c15G*c2P*p-0X&a-25V&a+1R Name: Berto Romo : 1955 M61 MedRec: [id number] AcctNum: [id number] Prepared: SatFeb 28, 2016 20:02 by Interface Page 4 of 10 pMD [facility] EMERGENCY RECORD Patient presents for evaluation of diarrhea, Number of times: 4 times yesterday, described as watery stools, Patient presents for evaluation of dry mouth. HISTORIAN: History provided by patient. LOCATION MALE: Symptoms are localized, most severe in the epigastrium, no radiation, No migration of pain. QUALITY: Pain is dull in nature, described as cramping. SEVERITY: Currently there are no symptoms. TIME COURSE: Gradual onset of symptoms, 4, days priror to arrival, Symptoms are improving, are intermittent, Pt is here for his 4th visit in the last 5 days. Started with just feeling shaky and yesterday was seen with diarrhea and had "lots of tests done at [facility]." He is here this morning due to 4 episodes of emesis that he says was dry heaves. ASSOCIATED WITH MALE: No associated recent antibiotic use, No associated chills, No associated constipation, Associated with diarrhea, Number of times: 4 yest, No associated fever, No associated flank pain, No associated loss of appetite, No associated melena, Associated with nausea, No associated night sweats, No associated testicular pain, No associated recent travel, No associated inability to tolerate oral intake, No associated urinary tract infection signs or symptoms, Associated with vomiting, Number of times: 4 this morning, ate 2 eggs and a piece of steak this morning and "lots of water last night". EXACERBATED BY: Patient's condition exacerbated by food. RELIEVED BY: Patient's condition relieved by nothing. ROS (09:18 DHA) CONSTITUTIONAL: Historian denies chills, denies fatigue, denies fever. had some sweats early this morning but does not think he had a fever. EYES: Negative eye review of systems, Historian denies eye pain, denies eye redness. ENT: Negative ears, nose, throat review of systems. CARDIOVASCULAR: Historian denies chest pain, denies dyspnea on exertion, denies syncope. RESPIRATORY: Historian denies cough, denies shortness of breath, denies sputum. GI: Historian reports abdominal pain, reports appetite changes, reports diarrhea, reports nausea, reports vomiting. GENITOURINARY MALE: Historian denies dysuria, denies urinary frequency, denies urinary urgency. MUSCULOSKELETAL: Historian denies arthralgias, denies myalgias, denies neck pain. SKIN: Historian denies cellulitis, reports rash, reports skin lesions. rash on bilat arms has been there for 1-2 years and may be spreading a bit. does not itch. occas scaly at the borders. &a-1R&a+25V*p+0X*y3243F*c202B*c15G*c2P*p-0X&a-25V&a+1R Name: Berto Romo : 1955 M61 MedRec: [id number] AcctNum: [id number] Prepared: Elza Feb 28, 2016 20:02 by Interface Page 5 of 10 D [facility] EMERGENCY RECORD NEUROLOGIC: Historian denies confusion, denies headache, denies paresthesias. PSYCHIATRIC: Historian denies anxiety, denies depression. NOTES: All systems reviewed, negative except as described above. PAST MEDICAL HISTORY (09:10 IB) MEDICAL HISTORY: Past medical history includes gastrointestinal disease, gastroesophageal reflux disease, Flu vaccine not up to date, Tetanus not up to date, Pneumococcal vaccine not up to date, Past medical history includes history of diabetes, hx of angioedema, Past medical history includes history of hypertension. MALE SURGICAL HISTORY: heart cath twenty years ago. PSYCHIATRIC HISTORY: No previous psychiatric history. SOCIAL HISTORY: Patient denies alcohol use, Patient denies drug use, Patient has no smoking history. PHYSICAL EXAM (09:18 DHAM) CONSTITUTIONAL: Vital signs reviewed, Patient afebrile, Pulse normal, Blood pressure, hypertensive, Respiratory rate normal, Patient appears non toxic, Patient appears pain free, Patient alert and oriented to person, place and time, seems a bit anxious. HEAD: Head exam normal, Head exam included findings of head atraumatic. EYES: Eye exam included findings of eyelids normal to inspection, Pupils equally round and reactive to light, Extraocular muscles intact, Conjunctiva normal. ENT: Ear exam normal, external ear normal, tympanic membranes normal, no drainage, Nose exam normal, no nasal deformity, Pharynx exam normal, Uvula exam normal, Tonsil exam normal, Mouth exam normal, mucous membranes moist, teeth normal, no nasal congestion or rhinorrhea. NECK: Neck exam normal, Neck exam included findings of normal range of motion, Thyroid normal, no jugular venous distention, no cervical adenopathy. RESPIRATORY CHEST: Breath sounds clear, No wheezing, Rales present, to the left lower lobe, No rhonchi, Breath sounds otherwise clear. CARDIOVASCULAR: Cardiovascular exam included findings of heart rate regular rate and rhythm, Heart sounds normal, Point of maximal impulse normal. ABDOMEN MALE: Abdominal exam included findings of abdomen nontender, Bowel sounds normal, Liver normal, Spleen normal, no distension, no mass, no peritoneal signs. UPPER EXTREMITY: Upper extremity exam normal, Radial pulse normal. LOWER EXTREMITY: Lower extremity exam normal, Lower extremity exam included findings of inspection normal, Range of motion normal. NEURO: Ilda coma scale 15, Neuro exam findings include patient &a-1R&a+25V*p+0X*g2299T*c202B*c15G*c2P*p-0X&a-25V&a+1R Name: Berto Romo : 1955 M61 MedRec: [id number] AcctNum: [id number] Prepared: SatFeb 28, 2016 20:02 by Interface Page 6 of 10 pMD [facility] EMERGENCY RECORD oriented to person, place and time, Speech normal, Gait normal, Cranial nerves intact. SKIN: Skin exam included findings of skin warm, dry, and normal in color, Rash present, bilat forearms with irregular raised erythematous bordered lesions. there is no scaling at this time but remarkable central clearing of these circular lesions. borders are very well demarcated and this central clearing almost appears atrophic and hypopigmented. the lesions are 8-12cm in diameter and irregular and number 8-10 on each forearm with sparing of the palms. PSYCHIATRIC: Psychiatric exam included findings of patient oriented to person place and time, Normal affect, Judgment normal, Insight normal. EVENTS TRANSFER: Triage to Emergency Triage. (SatFeb 28, 2016 09:00 LGIB) Emergency Triage to Emergency Room -02. (09:01 LGIB) Removed from Emergency Emergency Room -02. (10:47 [facility]) RADIOLOGYINTERPRETATION (09:44 DHAM) CHEST: Chest films negative, no infiltrates, no pneumothorax, no hemothorax, no masses, no cardiomegaly, no congestive heart failure, no effusion, no free air, elevated right hemidiaphragm. ABDOMEN: Obstructive series films negative, normal small bowel gas pattern, no air fluid levels, no free air. EKG INTERPRETATION (09:40 DHAM) 12 LEAD EKG INTERPRETATION: 12 lead EKG interpreted by Emergency Department Physician at time of study, 12 lead EKG shows normal sinus rhythm, Rate (beats per minute): 100, with no ectopics, Conduction normal, ST segments normal, T waves normal, [place] normal, Clinical impression: Normal EKG. O2SAT INTERPRETATION (09:40 DHAM) O2SAT: Single pulse oximetry, Oxygen saturation 97%, on room air, Oxygen saturation interpretation: Normal, No intervention required. DOCTOR NOTES (10:32 DHAM) TEXT: Pt's labs, xrays and ekg are pretty reassuring. His Na is low and he tells me this has occurred previously. I suspect due to hctz with oral fluid replacement with water only. will increase sodium intake and recheck 48 hours. see dci. Pt appears euvolemic and really was not nauseated though I did give some Zofran due to his n/v this morning. PROBLEM LIST No recorded problems DIAGNOSIS (10:38 DHAM) &a-1R&a+25V*p+0X*m9030R*c202B*c15G*c2P*p-0X&a-25V&a+1R Name: Berto Romo : 1955 M61 MedRec: [id number] AcctNum: [id number] Prepared: Elza Feb 28, 2016 20:02 by Interface Page 7 of 10 pMD [facility] EMERGENCY RECORD FINAL: PRIMARY: viral gastroenteritis, ADDITIONAL: Hyponatremia, tinea corporis. DISPOSITION PATIENT: Disposition Type: Discharge, Disposition: *Discharge Home. (10:35 DHAM) Patient left the department. (10:47 [facility]) INSTRUCTION (10:37 DHAM) DISCHARGE: VIRAL GASTROENT 4 YR ADULT, HYPONATREMIA. FOLLOWUP: Jose G MCBRIDE, HOLLIE, [facility], [address] [facility] [address], [id number]. SPECIAL: Zofran 4mg ODT one every six hours as needed for Nausea/vomiting. Hold your hydrochlorothiazide for 48 hours. RECHECK YOUR SODIUM IN 48 HOURS WITH YOUR PCP OR HERE. INCREASE YOUR SODIUM INTAKE DISCUSSED. Oral rehydration with small volumes of gatorade or powerade frequently. [place] diet with no milk or caffeine. Return for signs of dehydration that we discussed, persistent nausea/vomiting. Return for fevers >2-3 days or other concerns Use Lamisil daily for 3 weeks to rash. PRESCRIPTION (10:39 DHAM) Zofran ODT: TABLET, RAPID DISSOLVE : 4 mg : ORAL : Quantity: 4 Unit: mg Route: ORAL Schedule: every 6 hours PRN Dispense: 10 Unit: tab(s) May substitute. Refills: No Refills . NOTES: Zofran 4mg ODT take 1 tab q6h prn No refills. IMAGING *EKG: Image captured from scanner. (09:44 ASA) *DISCHARGE INSTRUCTIONS RECEIPT: Image captured from scanner. (10:46 ASA) *SUPPLY CHARGE SHEET: Image captured from scanner. (10:46 [facility]) ADMIN DIGITAL SIGNATURE: SCOUT Shaikh, May. (10:46 ASA) MD Dunaway Darren. (19:59 DHAM) RESULTS LABORATORY: Accuchek Collection DT: SatFeb 28, 2016 09:45, *Accuc[place]k 140 - H mg/dL, Range (70-110). (10:15 DHAM) CBC with Differential Collection DT: SatFeb 28, 2016 10:07, White Blood Cell (WBC) Count 10.3 thou/uL, Range (4.8-10.8), Red Blood Cell (RBC) Count 5.21 mill/uL, Range (4.70-6.10), Hemoglobin 15.6 g/dL, Range (14.0-18.0), &a-1R&a+25V*p+0X*y3648U*c202B*c15G*c2P*p-0X&a-25V&a+1R Name: Berto Romo : 1955 M61 MedRec: [id number] AcctNum: [id number] Prepared: SatFeb 28, 2016 20:02 by Interface Page 8 of 10 pMD [facility] EMERGENCY RECORD Hematocrit 47.3 %, Range (42.0-52.0), Mean Corpuscular Volume 91.0 fl, Range (80.0-94.0), Mean Corpuscular Hemoglobin 30.0 pg, Range (27.0-31.0), Mean Corpuscular HGB CONC 33.0 g/dL, Range (32.0-36.0), RBC Distribution Width 11.5 %, Range (11.5-14.5), Platelet Count 203 thou/uL, Range (130-400), Mean Platelet Volume 8.6 fL, Range (7.4-10.4), *%Neutrophils 78.1 - H %, Range (42.0-75.0), *%Lymphocytes 13.4 - L %, Range (21.0-51.0), %Monocytes 7.6 %, Range (0.0-10.0), %Eosinophils 0.3 %, Range (0.0-10.0), %Basophils 0.6 %, Range (0.0-1.0), *#Neutrophils 8.1 - H thou/uL, Range (1.40-6.50), #Lymphocytes 1.4 thou/uL, Range (1.20-3.40), *#Monocytes 0.8 - H thou/uL, Range (0.11-0.59), #Eosinphils 0.0 thou/uL, Range (0.0-0.7), #Basophils 0.1 thou/uL, Range (0.0-0.2). (10:24 DHAM) Cardiac Profile w/CKMB & TropI Collection DT: SatFeb 28, 2016 10:07, CKMB 3.8 ng/mL, Range (0-6.6), Troponin I Less than 0.010 ng/mL, Range (< 0.028), Reference Range , 0.00 - 0.028 ng/mL Negative 0.029 - 0.29 ng/mL , Indeterminate Greater or Equal to 0.3 ng/mL Strongly suggests [place] , . (10:24 DHAM) Lipase Collection DT: SatFeb 28, 2016 10:07, Lipase 32 U/L, Range (8-78). (10:24 DHAM) Comprehensive Metabolic Panel Collection DT: SatFeb 28, 2016 10:07, *Sodium 130 - L mmol/L, Range (136-145), Potassium 3.8 mmol/L, Range (3.5-5.1), Chloride 98 mmol/L, Range (98-107), *Carbon Dioxide 21 - L mmol/L, Range (23-31), Anion Gap 15 mmol/L, Range (10-20), BUN (Urea Nitrogen) 12 mg/dL, Range (8.4-25.7), Creatinine 0.81 mg/dL, Range (0.7-1.3), Estimated GFR-MDRD Greater than 90 , Reference Range for Estimated GFR: Greater than 90, mL/min/1.73 m2 NOTE: The MDRD equation has not been validated for use, with the elderly (over 70 years of age), women, patients with, serious comorbid condition or persons with extremes of body size, muscle, mass, or nutritional status. , *Glucose 153 - H mg/dL, Range (80-115), Calcium 9.3 mg/dL, Range (7.8-10.44), *Bilirubin, Total 1.3 - H mg/dL, Range (0.2-1.2), Protein, Total 7.1 g/dL, Range (5.8-8.1), NOTE: Plasma values are &a-1R&a+25V*p+0X*h8831M*c202B*c15G*c2P*p-0X&a-25V&a+1R Name: Berto Romo Omer : 1955 M61 MedRec: [id number] AcctNum: [id number] Prepared: SatFeb 28, 2016 20:02 by Interface Page 9 of 10 pMD [facility] EMERGENCY RECORD generally 0.3 to 0.5 g/dL higher than serum values, due to the presence of fibrinogen. , Albumin 3.9 g/dL, Range (3.4-4.8), Globulin 3.2 g/dL, Range (2.4-3.5), Alb/Glob Ratio 1.2 g/dL, Range (1.2-2.2), Alkaline Phosphatase 91 U/L, Range (40-150), AST (SGOT) 26 U/L, Range (5-34), ALT (SGPT) 34 U/L, Range (0-55). (10:24 DHAM) Urinalysis with Microscopic Collection DT: SatFeb 28, 2016 10:08, Color [place] , Range (Yellow), Clarity Slightly Cloudy , Range (Clear), *Specific [place], Urine 1.004 - L , Range (1.005-1.030), pH, Urine 5.0 , Range (5.0-9.0), Leukocyte Negative , Range (Negative), Nitrite Negative , Range (Negative), Protein, Urine (Dipstick) Negative mg/dL, Range (Neg-Trace), Glucose, Urine (Dipstick) Negative mg/dL, Range (Negative), *Ketone, Urine 15 - H mg/dL, Range (Negative), Urobilinogen 0.2 mg/dL, Range (0.2-1.0), Bilirubin Negative , Range (Negative), Blood, Urine Negative , Range (Negative), RBC/HPF 0-3 HPF, Range (0-3), WBC/HPF 0-3 HPF, Range (0-3), Squamous Epithelial 0-3 HPF, Range (0-3), Bacteria/HPF Rare-Few HPF, Range (None Seen). (10:28 [facility]) Falk: [facility]=SCOUT Shaikh, May [facility]=MD Gume, Jaziel LGIB=SCOUT Kincaid, Aydee &a-1R&a+25V*p+0X*m2563V*c202B*c15G*c2P*p-0X&a-25V&a+1R Name: ClarissaAlyssaharlan Tello : 1955 M61 MedRec: [id number] AcctNum: [id number] Prepared: Elza Feb 28, 2016 20:02 by Interface Page 10 of 10 pMD MTDD
--- NOTE | 2016-02-28 12:22 | RAD ---
ACUTE ABDOMEN SERIES: Date: 02-28-16 FINDINGS: The bowel gas pattern is normal. There are no distended loops to suggest obstruction. A moderate i ncrease of stool is seen in the colon. No important calcifications were seen. Scoliosis with sever e degenerative changes is evident, particularly in the lumbar spine. The chest film in the series is compared with a 01-30-15 exam. The right hemidiaphragm is perhaps a little more elevated than it sometimes is, but this also could be due to lack of a deep inspiration . No definite lobar infiltrates or effusions were seen. There might be a little linear atelectasis in the right base. The heart size is normal. IMPRESSION: No acute abdominal findings. POS: HOME
== END 2016-02-28 10:39 | disposition home or self-care (01) ==
LOC: BURERS 08:54
DX: A08.4 Viral intestinal infection, unspecified (principal); E87.1 Hypo-osmolality and hyponatremia; B35.4 Tinea corporis; K21.9 Gastro-esophageal reflux disease without esophagitis; I10 Essential (primary) hypertension; E11.9 Type 2 diabetes mellitus without complications
CPT/HCPCS: 36416; 74022; 80053; 81001; 82553; 83690; 84484; 85025; 93005; 94760; 36415-59; Q0162

== ENCOUNTER 2016-03-01 19:46 | Emergency (ER) | payer BC ==
[2016-03-01 20:40] LABS: Anion Gap 14 mmol/L (10-20); BUN (Urea Nitrogen) 11 mg/dL (8.4-25.7); Calc. Creatinine Clearance 0 mL/min (70-130); Calcium 9.2 mg/dL (7.8-10.44); Carbon Dioxide 24 mmol/L (23-31); Chloride 100 mmol/L (98-107); Estimated GFR-MDRD Greater than 90
--- NOTE | 2016-03-01 21:05 | ERRECORD ---
[facility] EMERGENCY RECORD HPI WEAK-DIZZY (SatMar 02, 2016 08:41 WMEI) CHIEF COMPLAINT: Patient presents for evaluation of weakness, Patient presents for evaluation of dizziness, Denies mental status changes. HISTORIAN: History provided by patient, PT RECENT DX OF HYPONATREMIA HCTZ STOPPED 2 DAYS AGO TO REPEAT LAB IN A FEW DAYS HOWEVER NOTICED INCREASINED BP AND TOOK HCTZ FEEL BETTER NOW THAT BP IS COMING DOWN. LOCATION: Symptoms are generalized. QUALITY: Patient is alert and oriented to person, place and time, Ilda coma score is 15, Described as similar to previous episodes. TIME COURSE: Gradual onset of symptoms, Symptoms are improving. ASSOCIATED WITH: No associated chest pain, No associated fever. EXACERBATED BY: Patient's condition exacerbated by nothing. RELIEVED BY: Patient's condition relieved by nothing. ROS (SatMar 02, 2016 08:46 WMEI) CONSTITUTIONAL: Historian denies chills, denies fever. EYES: Historian denies eye pain, denies eye discharge. ENT: Historian denies rhinorrhea, denies sore throat. CARDIOVASCULAR: Historian denies chest pain, no radiation. RESPIRATORY: Historian denies cough, denies shortness of breath. GI: Historian denies diarrhea, denies nausea, denies vomiting. GENITOURINARY MALE: Historian denies dysuria, denies urinary urgency. MUSCULOSKELETAL: Historian denies joint stiffness, denies joint swelling. SKIN: Historian denies skin changes, denies skin lesions. NEUROLOGIC: Historian reports dizziness, denies mental status changes. PSYCHIATRIC: Historian denies alcohol abuse, denies depression, denies drug abuse. PAST MEDICAL HISTORY (19:57 MMAN) MEDICAL HISTORY: Past medical history includes gastrointestinal disease, gastroesophageal reflux disease, Flu vaccine not up to date, Tetanus not up to date, Pneumococcal vaccine not up to date, Past medical history includes history of diabetes, hx of angioedema, Past medical history includes history of hypertension. Verified 03/01/2016. MALE SURGICAL HISTORY: heart cath twenty years ago. Verified 03/01/2016. PSYCHIATRIC HISTORY: No previous psychiatric history. Verified 03/01/2016. SOCIAL HISTORY: Patient denies alcohol use, Patient denies drug use, Patient has no smoking history. Verified 03/01/2016. KNOWN ALLERGIES No Known Allergies (Unconfirmed) No Known Drug Allergies &a-1R&a+25V*p+0X*b5682N*c202B*c15G*c2P*p-0X&a-25V&a+1R Name: Berto Romo : 1955 M61 MedRec: [id number] AcctNum: [id number] Prepared: SatMar 02, 2016 08:51 by Interface Page 1 of 3 pMD [facility] EMERGENCY RECORD CURRENT MEDICATIONS hydrochlorothiazide: TABLET : Strength - 25 mg : ORAL Patient Dose: 25 mg Oral once a day.DID NOT TAKE FOR 36 HOURS, TOOK [employer]ES TO ER. (20:08 AADK) omeprazole: CAPSULE,DELAYED RELEASE (ENTERIC COATED) : Strength - 20 mg : ORAL Patient Dose: 40 mg Oral once a day. (20:08 AADK) metFORMIN: TABLET, EXTENDED RELEASE 24 HR : Strength - 500 mg : ORAL Patient Dose: 1 tab(s) Oral once a day.2 tabs at night. (20:08 AADK) Benadryl: CAPSULE : Strength - 25 mg : ORAL Patient Dose: 2 tab(s) Oral every 4 hours prn. (20:10 AADK) Zofran ODT: TABLET,DISINTEGRATING : Strength - 4 mg : ORAL Patient Dose: 4 mg Oral every 6 hours PRN. (20:10 AADK) lisinopril: TABLET : Strength - 10 mg : ORAL Patient Dose: 10 mg Oral once a day (in the morning). (20:10 AADK) EpiPen: AUTO-INJECTOR (EA) : Strength - 0.3 mg/0.3 mL (1:1,000) : INJECTION Patient Dose: Subcutaneous As Needed. (20:11 AADK) VITAL SIGNS VITAL SIGNS: BP: 169/108, Pulse: 82, Resp: 18, Temp: 97.8 (Oral), Pain: 0, O2 sat: 95 on Room Air, Time: 03/01/2016 19:54. (19:54 MMAN) BP: 156/103, Pulse: 78, Resp: 18, Pain: 0, O2 sat: 95 on RA, Time: 03/01/2016 20:00. (20:00 AADK) BP: 140/90, Pulse: 78, Resp: 16, Temp: 98.0, Pain: 0, O2 sat: 96 on RA, Time: 03/01/2016 20:54. (20:54 MMAN) PHYSICAL EXAM (SatMar 02, 2016 08:47 WMEI) CONSTITUTIONAL: Vital signs reviewed, Patient appears non toxic, Patient appears pain free, Patient alert and oriented to person, place and time. HEAD: Head exam included findings of head atraumatic, normocephalic. EYES: Extraocular muscles intact, Conjunctiva normal, Sclera normal. ENT: Ear exam normal, Nose exam normal, Pharynx exam normal. NECK: Neck exam included findings of normal range of motion, Trachea midline. RESPIRATORY CHEST: Breath sounds clear, Chest exam included findings of chest movement symmetrical. CARDIOVASCULAR: Cardiovascular exam included findings of heart rate regular rate and rhythm, Heart sounds normal. &a-1R&a+25V*p+0X*k8062O*c202B*c15G*c2P*p-0X&a-25V&a+1R Name: Berto Romo : 1955 M61 MedRec: [id number] AcctNum: [id number] Prepared: SatMar 02, 2016 08:51 by Interface Page 2 of 3 pMD [facility] EMERGENCY RECORD ABDOMEN MALE: Abdominal exam included findings of abdomen nontender, Bowel sounds normal. UPPER EXTREMITY: Upper extremity exam included findings of inspection normal, Range of motion normal, Motor strength normal. LOWER EXTREMITY: Lower extremity exam included findings of inspection normal, Range of motion normal, Motor strength normal. NEURO: Ilda coma scale 15, Neuro exam findings include patient oriented to person, place and time, Speech normal, Gait normal. SKIN: Skin exam included findings of skin warm, dry, and normal in color. LYMPHATIC: Lymphatic exam normal. PSYCHIATRIC: Psychiatric exam included findings of patient oriented to person place and time, Normal affect, Judgment normal, Insight normal. PROBLEM LIST No recorded problems DIAGNOSIS (20:46 WMEI) FINAL: PRIMARY: Hypertension, ADDITIONAL: DIZZINESS. PRESCRIPTION No recorded prescriptions DISPOSITION PATIENT: Disposition Type: Discharge, Disposition: *Discharge Home. (20:46 WMEI) Patient left the department. (20:55 MMAN) Falk: AADK=SCOUT De, Ro MMAN=SCOUT Morillo, Thang WMEI=DO Lai William &a-1R&a+25V*p+0X*x4381H*c202B*c15G*c2P*p-0X&a-25V&a+1R Name: Berto Romo Omer : 1955 M61 MedRec: [id number] AcctNum: [id number] Prepared: SatMar 02, 2016 08:51 by Interface Page 3 of 3 pMD MTDD
--- NOTE | 2016-03-01 21:12 | PICIS ---
[facility] EMERGENCY RECORD TRIAGE (SatMar 01, 2016 19:52 MMAN) TRIAGE NOTES: Patient states "I bought a new BP monitor today and tonight my blood pressure was 167/108 at 19:45." Patient denies any chest pain or SOB but reports some light headedness. Patient states "I had not taken hydrocholothiazide for a few days and took it at 19:00 tonight.". (SatMar 01, 2016 19:52 MMAN) PATIENT: NAME: Berto Romo, AGE: 61, GENDER: male, : Sun 1955, TIME OF GREET: SatMar 01, 2016 19:47, PREFERRED LANGUAGE: Chadian, ETHNICITY: Not or , ECODE BILLING MAP: [facility], SSN: [id number], Zip Code: [address], KG WEIGHT: 104.33, PHONE: , , , PERSON ID: [id number], PAYMENT: NEIL Palacios, PCP: Jose G MCBRIDE STEPHEN. (SatMar 01, 2016 19:52 MMAN) COMPLAINT: Elevated Blood Pressure. (SatMar 01, 2016 19:52 MMAN) ADMISSION: URGENCY: 3 Urgent, ADMISSION SOURCE: Home, TRANSPORT: CAR, BED: TRIAGE. (SatMar 01, 2016 19:52 MMAN) SIRS SCORING: Heart Rate 55-109 (0), Temp range 96.8-101.1 (0), respiratory rate 12-24 (0), Mental Status altered: no (0), Infection or Suspected Infection: No. (19:57 MMAN) TRIAGE SCREENING: Patient denies suicidal ideation, Patient denies presence of domestic violence. (19:57 MMAN) TREATMENTS IN PROGRESS: Medications Given, hydrochlorothiazide at 19:00. (19:57 MMAN) PROVIDERS: TRIAGE NURSE: Thang Morillo RN. (SatMar 01, 2016 19:52 MMAN) PREVIOUS VISIT ALLERGIES: No Known Drug Allergies. (SatMar 01, 2016 19:52 MMAN) No Known Drug Allergies. 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 (20:08 AADK) omeprazole: CAPSULE,DELAYED RELEASE (ENTERIC COATED) : Strength - 20 mg : ORAL Patient Dose: 40 mg Oral once a day. (20:08 AADK) metFORMIN: TABLET, EXTENDED RELEASE 24 HR : Strength - 500 mg : ORAL Patient Dose: 1 tab(s) Oral once a day.2 tabs at night. (20:08 AADK) Benadryl: CAPSULE : Strength - 25 mg : ORAL Patient Dose: 2 tab(s) Oral every 4 hours prn. (20:10 AADK) Zofran ODT: &a-1R&a+25V*p+0X*u9157V*c202B*c15G*c2P*p-0X&a-25V&a+1R Name: Berto Romo : 1955 M61 MedRec: [id number] AcctNum: [id number] Prepared: SatMar 02, 2016 08:57 by Interface Page 1 of 5 pMD [facility] EMERGENCY RECORD TABLET,DISINTEGRATING : Strength - 4 mg : ORAL Patient Dose: 4 mg Oral every 6 hours PRN. (20:10 AADK) lisinopril: TABLET : Strength - 10 mg : ORAL Patient Dose: 10 mg Oral once a day (in the morning). (20:10 AADK) EpiPen: AUTO-INJECTOR (EA) : Strength - 0.3 mg/0.3 mL (1:1,000) : INJECTION Patient Dose: Subcutaneous As Needed. (20:11 AADK) VITAL SIGNS VITAL SIGNS: BP: 169/108, Pulse: 82, Resp: 18, Temp: 97.8 (Oral), Pain: 0, O2 sat: 95 on Room Air, Time: 03/01/2016 19:54. (19:54 MMAN) BP: 156/103, Pulse: 78, Resp: 18, Pain: 0, O2 sat: 95 on RA, Time: 03/01/2016 20:00. (20:00 AADK) BP: 140/90, Pulse: 78, Resp: 16, Temp: 98.0, Pain: 0, O2 sat: 96 on RA, Time: 03/01/2016 20:54. (20:54 MMAN) NURSING ASSESSMENT: CARDIOVASCULAR (20:00 AADK) CONSTITUTIONAL: Patient arrives ambulatory, Gait steady, History obtained from patient, Patient appears comfortable, Patient cooperative, Patient alert, Oriented to person, place and time, Skin warm, Skin dry, Skin normal in color, Mucous membranes pink, Mucous membranes moist, Patient is well-groomed, Patient complains of ELEVATED BLOOD PRESSURE, PT PRESENTS TO ER WITH C/O ELEVATED B/P. PT BROUGHT TO 2 AT THIS TIME. PT DENIES CP OR SOB, STATES HIS LIGHT-HEADEDNESS IS ALSO BETTER THAN WHEN HE FIRST ARRIVED. B/P NOW 156/103 W/HR 78. LUNGS CLEAR BILAT, A/R PULSE EQUAL AND REGULAR. DENIES BLURRED VISION OR LYNN. PAIN: DENIES PAIN. CARDIOVASCULAR: Cardiovascular assessment findings include heart rate normal, Heart sounds normal, S1, S2, Left radial pulse +3(easily palpated, considered normal), Right radial pulse +3(easily palpated, considered normal), Notes: DENIES DIZZINESS JUST FELT LIGHT-HEADED. NEITHER HIM OR THE ROOM WAS SPINNING. RESPIRATORY/CHEST: Breath sounds clear, Respiratory assessment findings include respiratory effort easy, Respirations regular, Conversing normally, Neck and chest exam findings include trachea midline, Chest expansion equal, Chest movement symmetrical, no signs of distress, no retractions noted, no cyanosis, no associated cough noted. SAFETY: Side rails up, Cart/Stretcher in lowest position, Family at bedside, Call light within reach, Hospital ID band on, Patient in view of the nursing station. VITAL SIGNS: BP: 156, / 103, Pulse: 78, Resp: 18, Pain: 0, O2 sat: 95, on: RA. NURSING PROCEDURE: DISCHARGE NOTE (20:54 MMAN) DISCHARGE: Patient discharged to home, ambulating without assistance, friend driving, accompanied by friend, Summary of Care &a-1R&a+25V*p+0X*w9011F*c202B*c15G*c2P*p-0X&a-25V&a+1R Name: Berto Romo : 1955 M61 MedRec: [id number] AcctNum: [id number] Prepared: SatMar 02, 2016 08:57 by Interface Page 2 of 5 pMD [facility] EMERGENCY RECORD printed/ provided, Transition record given to patient, Discharge instructions given to patient, Simple or moderate discharge teaching performed, Above person(s) verbalized understanding of discharge instructions and follow-up care. BELONGINGS: Belongings and valuables with patient at time of discharge include:, Belongings remain with patient, Valuables remain with patient. SAFETY: Side rails up, Cart/Stretcher in lowest position, Call light within reach, Hospital ID band on, Friend(s) at bedside. VITAL SIGNS: BP: 140, / 90, Pulse: 78, Resp: 16, Temp: 98.0, Pain: 0, O2 sat: 96, on: RA. ORDER DETAILS Order Name: Basic Metabolic Panel, Status: Active, Time: 20:14 03/01/2016, User: AADK, - Ordered for: DO Lai William, - Entered by: SCOUT De Angela - Thu Mar 01, 2016 20:14, - Quantity: 1. HPI WEAK-DIZZY (SatMar 02, 2016 08:41 WMEI) CHIEF COMPLAINT: Patient presents for evaluation of weakness, Patient presents for evaluation of dizziness, Denies mental status changes. HISTORIAN: History provided by patient, PT RECENT DX OF HYPONATREMIA HCTZ STOPPED 2 DAYS AGO TO REPEAT LAB IN A FEW DAYS HOWEVER NOTICED INCREASINED BP AND TOOK HCTZ FEEL BETTER NOW THAT BP IS COMING DOWN. LOCATION: Symptoms are generalized. QUALITY: Patient is alert and oriented to person, place and time, Ilda coma score is 15, Described as similar to previous episodes. TIME COURSE: Gradual onset of symptoms, Symptoms are improving. ASSOCIATED WITH: No associated chest pain, No associated fever. EXACERBATED BY: Patient's condition exacerbated by nothing. RELIEVED BY: Patient's condition relieved by nothing. ROS (SatMar 02, 2016 08:46 WMEI) CONSTITUTIONAL: Historian denies chills, denies fever. EYES: Historian denies eye pain, denies eye discharge. ENT: Historian denies rhinorrhea, denies sore throat. CARDIOVASCULAR: Historian denies chest pain, no radiation. RESPIRATORY: Historian denies cough, denies shortness of breath. GI: Historian denies diarrhea, denies nausea, denies vomiting. GENITOURINARY MALE: Historian denies dysuria, denies urinary urgency. MUSCULOSKELETAL: Historian denies joint stiffness, denies joint swelling. SKIN: Historian denies skin changes, denies skin lesions. NEUROLOGIC: Historian reports dizziness, denies mental status changes. &a-1R&a+25V*p+0X*i0658F*c202B*c15G*c2P*p-0X&a-25V&a+1R Name: Berto Romo : 1955 M61 MedRec: [id number] AcctNum: [id number] Prepared: SatMar 02, 2016 08:57 by Interface Page 3 of 5 pMD [facility] EMERGENCY RECORD PSYCHIATRIC: Historian denies alcohol abuse, denies depression, denies drug abuse. PAST MEDICAL HISTORY (19:57 MMAN) MEDICAL HISTORY: Past medical history includes gastrointestinal disease, gastroesophageal reflux disease, Flu vaccine not up to date, Tetanus not up to date, Pneumococcal vaccine not up to date, Past medical history includes history of diabetes, hx of angioedema, Past medical history includes history of hypertension. Verified 03/01/2016. MALE SURGICAL HISTORY: heart cath twenty years ago. Verified 03/01/2016. PSYCHIATRIC HISTORY: No previous psychiatric history. Verified 03/01/2016. SOCIAL HISTORY: Patient denies alcohol use, Patient denies drug use, Patient has no smoking history. Verified 03/01/2016. PHYSICAL EXAM (SatMar 02, 2016 08:47 WMEI) CONSTITUTIONAL: Vital signs reviewed, Patient appears non toxic, Patient appears pain free, Patient alert and oriented to person, place and time. HEAD: Head exam included findings of head atraumatic, normocephalic. EYES: Extraocular muscles intact, Conjunctiva normal, Sclera normal. ENT: Ear exam normal, Nose exam normal, Pharynx exam normal. NECK: Neck exam included findings of normal range of motion, Trachea midline. RESPIRATORY CHEST: Breath sounds clear, Chest exam included findings of chest movement symmetrical. CARDIOVASCULAR: Cardiovascular exam included findings of heart rate regular rate and rhythm, Heart sounds normal. ABDOMEN MALE: Abdominal exam included findings of abdomen nontender, Bowel sounds normal. UPPER EXTREMITY: Upper extremity exam included findings of inspection normal, Range of motion normal, Motor strength normal. LOWER EXTREMITY: Lower extremity exam included findings of inspection normal, Range of motion normal, Motor strength normal. NEURO: Ilda coma scale 15, Neuro exam findings include patient oriented to person, place and time, Speech normal, Gait normal. SKIN: Skin exam included findings of skin warm, dry, and normal in color. LYMPHATIC: Lymphatic exam normal. PSYCHIATRIC: Psychiatric exam included findings of patient oriented to person place and time, Normal affect, Judgment normal, Insight normal. EVENTS TRANSFER: Triage to Emergency Triage. (Loree Mar 01, 2016 19:52 MMAN) &a-1R&a+25V*p+0X*u1418F*c202B*c15G*c2P*p-0X&a-25V&a+1R Name: Berto Romo : 1955 M61 MedRec: [id number] AcctNum: [id number] Prepared: SatMar 02, 2016 08:57 by Interface Page 4 of 5 pMD [facility] EMERGENCY RECORD Emergency Triage to Waiting. (19:58 MMAN) Emergency Waiting to Emergency Room -02. (20:01 AADK) Removed from Emergency Emergency Room -02. (20:56 MMAN) PROBLEM LIST No recorded problems DIAGNOSIS (20:46 WMEI) FINAL: PRIMARY: Hypertension, ADDITIONAL: DIZZINESS. DISPOSITION PATIENT: Disposition Type: Discharge, Disposition: *Discharge Home. (20:46 WMEI) Patient left the department. (20:55 MMAN) INSTRUCTION (20:47 WMEI) DISCHARGE: HYPERTENSION, ESTABLISHED, HYPONATREMIA. [facility]: [facility] G [facility]BR[facility] [place] [id number], [phone]. SPECIAL: Follow-up with your PCP/HAS APT. PRESCRIPTION No recorded prescriptions IMAGING (21:20 AADK) *DISCHARGE INSTRUCTIONS RECEIPT: Image captured from scanner. *SUPPLY CHARGE SHEET: Image captured from scanner. ADMIN (SatMar 02, 2016 08:48 WMEI) DIGITAL SIGNATURE: DO Lai William. Falk: AADK=SCOUT De, Ro MMAN=SCOUT Morillo, Thang WMEI=DO Lai William &a-1R&a+25V*p+0X*m6921Q*c202B*c15G*c2P*p-0X&a-25V&a+1R Name: Berto Romo : 1955 M61 MedRec: [id number] AcctNum: [id number] Prepared: SatMar 02, 2016 08:57 by Interface Page 5 of 5 pMD MTDD
== END 2016-03-01 20:54 | disposition home or self-care (01) ==
LOC: BURERS 19:46
DX: I10 Essential (primary) hypertension (principal); K21.9 Gastro-esophageal reflux disease without esophagitis
CPT/HCPCS: 36415; 80048; 99283

== ENCOUNTER 2016-03-01 22:39 | Emergency (ER) | payer BC ==
--- NOTE | 2016-03-01 23:10 | ERRECORD ---
[facility] EMERGENCY RECORD KNOWN ALLERGIES No Known Allergies (Unconfirmed) No Known Drug Allergies CURRENT MEDICATIONS No recorded medications PROBLEM LIST No recorded problems DIAGNOSIS (22:49 MMAN) FINAL: PRIMARY: Left Without Triage. PRESCRIPTION No recorded prescriptions DISPOSITION (22:49 MMAN) PATIENT: Disposition Type: Eloped, Disposition: Left Without Triage, Patient left the department. Falk: MMAN=SCOUT Morillo, Thang &a-1R&a+25V*p+0X*d0663I*c202B*c15G*c2P*p-0X&a-25V&a+1R Name: Berto Romo Omer : 1955 M61 MedRec: [id number] AcctNum: [id number] Prepared: Loree Mar 01, 2016 22:55 by Interface Page 1 of 1 pMD MTDD
--- NOTE | 2016-03-01 23:21 | PICIS ---
[facility] EMERGENCY RECORD TRIAGE (SatMar 01, 2016 22:47 MMAN) TRIAGE NOTES: Patient reports he went home and checked his blood pressure and it was 159/101. Patient denies any symptoms or feeling poorly. "I am not having any chest pain, SOB, weakness, or dizziness. I just got worried because it was high again.". (SatMar 01, 2016 22:47 MMAN) PATIENT: NAME: Berto Romo, AGE: 61, GENDER: male, : Sun 1955, TIME OF GREET: SatMar 01, 2016 22:39, PREFERRED LANGUAGE: Romanian, RACE: WHITE, ETHNICITY: Not or , ECODE BILLING MAP: [facility], N: [phone], Zip Code: [address], PHONE: , , , PERSON ID: [id number], PAYMENT: [employer]. (SatMar 01, 2016 22:47 MMAN) KG WEIGHT: 97.5 (est.). (22:48 MMAN) COMPLAINT: Elevated Blood Pressure. (SatMar 01, 2016 22:47 MMAN) ADMISSION: URGENCY: 3 Urgent, ADMISSION SOURCE: Home, TRANSPORT: CAR, BED: TRIAGE. (SatMar 01, 2016 22:47 MMAN) PROVIDERS: TRIAGE NURSE: Thang Morillo RN. (SatMar 01, 2016 22:47 MMAN) PREVIOUS VISIT ALLERGIES: No Known Drug Allergies. (SatMar 01, 2016 22:47 MMAN) KNOWN ALLERGIES No Known Allergies (Unconfirmed) No Known Drug Allergies CURRENT MEDICATIONS No recorded medications NURSING PROCEDURE: NURSE NOTES (22:47 MMAN) NURSES NOTES: Notes: While walking the patient to the triage davis the patient decided that he did not want to be seen in the ER anymore. Patient states "I feel fine and I think I just got myself worked up cause I checked my BP at home again and it was a little high. I'm going to go home and rest." Patient instructed to return to the ER of call if he begins to have any symptoms of chest pain, SOB, weakness, dizziness, N/V, or diaphoresis. Patient able to ambulate well on his own and accompanied by his friend. Patient in no apparent distress, VSS. EVENTS TRANSFER: Triage to Emergency Triage. (SatMar 01, 2016 22:47 MMAN) Removed from Emergency Triage. (22:49 MMAN) PROBLEM LIST No recorded problems DIAGNOSIS (22:49 MMAN) &a-1R&a+25V*p+0X*i4391M*c202B*c15G*c2P*p-0X&a-25V&a+1R Name: Berto Romo : 1955 M61 MedRec: [id number] AcctNum: [id number] Prepared: SatMar 01, 2016 23:02 by Interface Page 1 of 2 pMD [facility] EMERGENCY RECORD FINAL: PRIMARY: Left Without Triage. DISPOSITION (22:49 MMAN) PATIENT: Disposition Type: Eloped, Disposition: Left Without Triage, Patient left the department. PRESCRIPTION No recorded prescriptions IMAGING (22:50 MMAN) AMA/LWBS: Image captured from scanner. *SUPPLY CHARGE SHEET: Image captured from scanner. Falk: MMAN=SCOUT Morillo, Thang &a-1R&a+25V*p+0X*r1244J*c202B*c15G*c2P*p-0X&a-25V&a+1R Name: Berto Romo : 1955 M61 MedRec: [id number] AcctNum: [id number] Prepared: Loree Mar 01, 2016 23:02 by Interface Page 2 of 2 pMD MTDD
== END 2016-03-01 22:45 | disposition left against medical advice (07) ==
LOC: BURERS 22:39
DX: Z53.21 Procedure and treatment not carried out due to patient leaving prior to being seen by health care provider (principal)

== ENCOUNTER 2016-03-02 14:13 | Observation (INO) | payer BC ==
[2016-03-02] MEDS ORDERED: Dicyclomine HCl 20 mg/2 ml Ampule ONE (14:54)
[2016-03-02] MEDS ORDERED: Ondansetron ODT 4 MG TAB ONE (14:54)
[2016-03-02 14:57] LABS: #Basophils 0.1 thou/uL (0.0-0.2); #Lymphocytes 1.4 thou/uL (1.20-3.40); #Monocytes 0.8 thou/uL (0.11-0.59); #Neutrophils 7.6 thou/uL (1.40-6.50); %Basophils 0.8 % (0.0-1.0); %Eosinophils 0.5 % (0.0-10.0); %Monocytes 8.3 % (0.0-10.0); Hematocrit 44.7 % (42.0-52.0); Mean Platelet Volume 7.9 fL (7.4-10.4); Red Blood Cell (RBC) Count 4.88 mill/uL (4.70-6.10); White Blood Cell (WBC) Count 9.9 thou/uL (4.8-10.8)
[2016-03-02 15:16] LABS: ALT (SGPT) 42 U/L (0-55); AST (SGOT) 29 U/L (5-34); Alkaline Phosphatase 71 U/L (40-150); Anion Gap 15 mmol/L (10-20); BUN (Urea Nitrogen) 8 mg/dL (8.4-25.7); Bilirubin, Total 0.9 mg/dL (0.2-1.2); Calc. Creatinine Clearance 0 mL/min (70-130); Calcium 8.7 mg/dL (7.8-10.44); Carbon Dioxide 23 mmol/L (23-31); Chloride 90 mmol/L (98-107); Estimated GFR-MDRD Greater than 90; Globulin 2.8 g/dL (2.4-3.5); Lipase 32 U/L (8-78); Protein, Total 6.4 g/dL (5.8-8.1)
[2016-03-02 16:12] LABS: Bilirubin Negative (Negative); Blood, Urine Trace (Negative); Glucose, Urine (Dipstick) 100 mg/dL (Negative); Ketone, Urine Negative (Negative); Nitrite Negative (Negative); Protein, Urine (Dipstick) Negative (Neg-Trace); RBC/HPF None Seen HPF (0-3); Squamous Epithelial 0-3 HPF (0-3); Urobilinogen 0.2 mg/dL (0.2-1.0); WBC/HPF None Seen HPF (0-3)
[2016-03-02 16:13] LABS: Bacteria/HPF None Seen HPF (None Seen)
--- NOTE | 2016-03-02 16:45 | PICIS ---
[facility] EMERGENCY RECORD TRIAGE (SatMar 02, 2016 14:18 SDIS) TRIAGE NOTES: PT HAS BEEN SEEN MULTIPLE TIMES RECENTLY. PT REPORTS CONSTIPATION, STATES HE HAS BEEN "TRYING TO EQUALIZE THE PRESSURE IN [HIS] ABDOMEN." NAD NOTED. (SatMar 02, 2016 14:18 SDIS) PATIENT: NAME: Berto Romo, AGE: 61, GENDER: male, : Sun 1955, TIME OF GREET: SatMar 02, 2016 14:13, PREFERRED LANGUAGE: Upper Sorbian, ETHNICITY: Not or , ECODE BILLING MAP: [facility], SSN: [id number], Zip Code: [address], PHONE: , , , PERSON ID: [id number], PAYMENT: NEIL Palacios, PCP: Jose G MCBRIDE STEPHEN. (SatMar 02, 2016 14:18 SDIS) KG WEIGHT: 104.3 (est.). (14:18 SDIS) COMPLAINT: CONSTIPATION. (SatMar 02, 2016 14:18 SDIS) ADMISSION: URGENCY: 3 Urgent, ADMISSION SOURCE: Home, TRANSPORT: Walk-in, BED: TRIAGE. (SatMar 02, 2016 14:18 SDIS) SIRS SCORING: Heart Rate 55-109 (0), Temp range 96.8-101.1 (0), respiratory rate 12-24 (0), Mental Status altered: no (0). (14:54 LGIB) PROVIDERS: TRIAGE NURSE: Mihaela Bentley RN. (SatMar 02, 2016 14:18 SDIS) VITAL SIGNS: Resp 18, (Non-Labored), Time 03/02/2016 14:17. (14:17 SDIS) BP 152/93, Pulse 86, Temp 98.3, (Oral), Pain 0, O2 Sat 96, on Room Air, Time 03/02/2016 14:19. (14:19 SDIS) PREVIOUS VISIT ALLERGIES: No Known Drug Allergies. (SatMar 02, 2016 14:18 SDIS) No Known Drug Allergies. (14:20 SDIS) KNOWN ALLERGIES No Known Drug Allergies CURRENT MEDICATIONS hydrochlorothiazide: TABLET : Strength - 25 mg : ORAL Patient Dose: 25 mg Oral once a day. (14:22 SDIS) omeprazole: CAPSULE,DELAYED RELEASE (ENTERIC COATED) : Strength - 40 mg : ORAL Patient Dose: 40 mg Oral once a day. (14:22 SDIS) metFORMIN: TABLET : Strength - 500 mg : ORAL Patient Dose: 500 mg Oral See Notes.1 TAB Q AM, 2 TAB Q HS. (14:23 SDIS) lisinopril: TABLET : Strength - 10 mg : ORAL Patient Dose: 10 mg Oral once a day. (14:23 SDIS) Flonase: SPRAY, SUSPENSION : Strength - 50 mcg : NASAL Patient Dose: 2 spray(s) Nares Both once a day (in the morning). (16:03 SDIS) &a-1R&a+25V*p+0X*o3471H*c202B*c15G*c2P*p-0X&a-25V&a+1R Name: Berto Romo : 1955 M61 MedRec: [id number] AcctNum: [id number] Prepared: SatMar 05, 2016 09:34 by Interface Page 1 of 10 pMD [facility] EMERGENCY RECORD VITAL SIGNS VITAL SIGNS: Resp: 18 (Non-Labored), Time: 03/02/2016 14:17. (14:17 SDIS) BP: 152/93, Pulse: 86, Temp: 98.3 (Oral), Pain: 0, O2 sat: 96 on Room Air, Time: 03/02/2016 14:19. (14:19 SDIS) BP: 109/76, Pulse: 85, Resp: 18, O2 sat: 95 on Room Air, Time: 03/02/2016 15:35. (15:35 SDIS) BP: 134/85, Pulse: 82, Resp: 18, Temp: 98.5 (Oral), Pain: 0, O2 sat: 94 on Room Air, Time: 03/02/2016 16:10. (16:10 SDIS) NURSING ASSESSMENT: ABDOMEN (14:59 SDIS) CONSTITUTIONAL: Patient arrives ambulatory, Gait steady, History obtained from patient, Patient appears comfortable, Patient cooperative, Patient alert, Oriented to person, place and time, Skin warm, Skin dry, Skin normal in color, Mucous membranes pink, Mucous membranes moist, Patient complains of CONSTIPATION, SEE TRIAGE NOTE BY THIS RN. PT REPORTS HE HAS BEEN CONSTIPATED, HAS BEEN SEEN IN ED MULTIPLE TIMES FOR SIMILAR THINGS. DENIES PAIN, STATES HE FEELS PRESSURE. PAIN: Patient rates pain as 0 out of 10. ABDOMEN: Abdomen assessment findings include abdomen symmetrical, Abdomen, full, no associated nausea, no associated vomiting, no associated diarrhea, Associated with constipation. GENITOURINARY MALE: no associated urinary complaints. NURSING ASSESSMENT: FALL RISK (15:47 SDIS) FALL RISK: Fall risk assessment findings include: no history of falls (0), No bed rest greater than 2 days (0), No use of level of consciousness altering agents with mentation or cognitive changes (0), No change in blood pressure (0), No sensory deficits (0), No impaired mobility (0), No neurologic diagnosis (0), No elimination problems (0), No confusion (0), Total score 0, No risk for fall. NURSING ASSESSMENT: SKIN (15:47 SDIS) SKIN: Skin assessment findings include skin warm, Skin dry, Skin normal in color, Notes: BLANCHEABLE REDNESS SC REGION, R BUTTOCK, L ARM DIFFUSE SPOTS NOTED, PT REPORTS "FUNGAL INFECTION.". NURSING PROCEDURE: ADMISSION (16:12 SDIS) ADMISSION: Patient admitted to a medical-surgical unit, room number 104, Report called toARACELI, Provided opportunity to answer questions, Admission orders received and completed, Transported via wheelchair, Accompanied by registered nurse, Transported with disposable blood pressure cuff, Transported with IV Fluid(s) infusing, Transported with saline lock, Summary of Care printed. BELONGINGS: Belongings and valuables with patient at time of &a-1R&a+25V*p+0X*t2322B*c202B*c15G*c2P*p-0X&a-25V&a+1R Name: Berto Romo Omer : 1955 M61 MedRec: [id number] AcctNum: [id number] Prepared: SatMar 05, 2016 09:34 by Interface Page 2 of 10 pMD [facility] EMERGENCY RECORD admission include:, Belongings remain with patient, Valuables remain with patient. NURSING PROCEDURE: BEDSIDE SIRS TESTING (15:48 SDIS) SCORES: Heart Rate 55-109 (0), Temp range 96.8-101.1 (0), respiratory rate 12-24 (0), Latest WBC 3-14.9 (0), Mental Status altered: no (0), Total SIRS Score 0. NURSING PROCEDURE: BEDSIDE TESTING (14:51 SDIS) PATIENT IDENTIFIER: Patient actively involved in identification process, Patient's identity verified by patient stating name, Patient's identity verified by patient stating date, Patient's identity verified by hospital ID bracelet. GLUCOSE: Glucose testing indicated for ER EXAM, Venous blood sample, Result (mg/dl) 160. FOLLOW-UP: After procedure, results given to Dr. CUNNINGHAM. NURSING PROCEDURE: EKG CHART (14:47 SDIS) PATIENT IDENTIFIER: Patient actively involved in identification process, Patient's identity verified by patient stating name, Patient's identity verified by patient stating date, Patient's identity verified by hospital ID bracelet. EKG: EKG indicated for ER EXAM, 12 lead EKG performed on the left chest, done by ARMANDO BUTTERFIELD, first EKG. FOLLOW-UP: After procedure, EKG for interpretation given to Dr. CUNNINGHAM. NURSING PROCEDURE: IV (15:48 SDIS) IV SITE 1: IV established, to the right wrist, using an 18 gauge catheter, in one attempt, IV site prepped with CHLOROPREP, Saline lock established, Labs drawn at time of placement, labeled in the presence of the patient and sent to lab. SAFETY: Side rails up, Cart/Stretcher in lowest position, Call light within reach, Hospital ID band on. NURSING PROCEDURE: LAB DRAW (14:45 LGIB) LAB DRAW: Lab draw indicated for obtaining specimens for evaluation, Initial lab draw performed, by venipuncture, from right forearm, in one attempt, Lab specimens labeled in the presence of the patient and sent to lab. NURSING PROCEDURE: NURSE NOTES (15:14 LGIB) NURSES NOTES: Notes: PT RESTING, NAD, RR EVEN AND UNLABORED. ORDER DETAILS Order Name: BLOOD GLUCOSE MONITOR, Status: Done, Time: 14:51 03/02/2016, User: Chroma EnergyMONICA, - Ordered for: DO Cunningham Matthew, &a-1R&a+25V*p+0X*r4260N*c202B*c15G*c2P*p-0X&a-25V&a+1R Name: Berto Romo : 1955 M61 MedRec: [id number] AcctNum: [id number] Prepared: SatMar 05, 2016 09:34 by Interface Page 3 of 10 pMD [facility] EMERGENCY RECORD - Entered by: DO Cunningham Matthew - SatMar 02, 2016 14:44, - Quantity: 1, Order Name: CBC with Differential, Status: Active, Time: 14:44 03/02/2016, User: MBRI, - Ordered for: DO Cunningham Matthew, - Entered by: DO Cunningham Matthew - SatMar 02, 2016 14:44, - Quantity: 1, Order Name: Comprehensive Metabolic Panel, Status: Active, Time: 14:44 03/02/2016, User: MBRI, - Ordered for: DO Cunningham Matthew, - Entered by: DO Cunningham Matthew - SatMar 02, 2016 14:44, - Quantity: 1, Order Name: EKG 12 Lead in Emergency Room, Status: Active, Time: 14:44 03/02/2016, User: MBRI, - Ordered for: DO Cunningham Matthew, - Entered by: DO Cunningham Matthew - SatMar 02, 2016 14:44, - Quantity: 1, Order Name: Lipase, Status: Active, Time: 14:44 03/02/2016, User: MBRI, - Ordered for: DO Cunningham Matthew, - Entered by: DO Cunningham Matthew - SatMar 02, 2016 14:44, - Quantity: 1, Order Name: SALINE LOCK, Status: Done, Time: 15:48 03/02/2016, User: SDIS, - Ordered for: DO Cunningham Matthew, - Entered by: DO Cunningham Matthew - SatMar 02, 2016 15:40, - Quantity: 1, Order Name: Urinalysis w/ Rflx Microscopic, Status: Active, Time: 15:40 03/02/2016, User: MBRI, - Ordered for: DO Cunningham Matthew, - Entered by: DO Cunningham Matthew - SatMar 02, 2016 15:40, - Quantity: 1. MEDICATION ADMINISTRATION SUMMARY Drug Name: sodium chloride 0.9 % intravenous, Dose Ordered: 500 mL, Route: IV Fluid Infusion, Status: Given, Time: 16:02 03/02/2016, Drug Name: Bentyl intramuscular, Dose Ordered: 20 mg, Route: Intramuscular, Status: Given, Time: 14:59 03/02/2016, Drug Name: ondansetron, Dose Ordered: 4 mg, Route: Sublingual, Status: Given, Time: 14:58 03/02/2016, Detailed record available in Medication Service section. MEDICATION SERVICE Bentyl intramuscular: Order: Bentyl intramuscular (dicyclomine HCl) - Dose: 20 mg : Intramuscular Ordered by: Thang Cunningham DO Entered by: Thang Cunningham DO SatMar 02, 2016 14:44 , Acknowledged by: Mihaela Bentley RN SatMar 02, 2016 14:52 Documented as given by: Mihaela Bentley RN SatMar 02, 2016 14:59 &a-1R&a+25V*p+0X*g6439Z*c202B*c15G*c2P*p-0X&a-25V&a+1R Name: Berto Romo : 1955 M61 MedRec: [id number] AcctNum: [id number] Prepared: SatMar 05, 2016 09:34 by Interface Page 4 of 10 pMD [facility] EMERGENCY RECORD Patient, Medication, Dose, Route and Time verified prior to administration. IM medication, Medication administered to left thigh, Correct patient, time, route, dose and medication confirmed prior to administration, Patient advised of actions and side-effects prior to administration, Allergies confirmed and medications reviewed prior to administration. ondansetron: Order: ondansetron - Dose: 4 mg : Sublingual Ordered by: Thang Cunningham DO Entered by: Thang Cunningham DO SatMar 02, 2016 14:44 , Acknowledged by: Mihaela Bentley RN SatMar 02, 2016 14:52 Documented as given by: Mihaela Bentley RN SatMar 02, 2016 14:58 Patient, Medication, Dose, Route and Time verified prior to administration. Site: Medication administered S.L., Correct patient, time, route, dose and medication confirmed prior to administration, Patient advised of actions and side-effects prior to administration, Allergies confirmed and medications reviewed prior to administration. sodium chloride 0.9 % intravenous: Order: sodium chloride 0.9 % intravenous (0.9 % sodium chloride) - Dose: 500 mL : IV Fluid Infusion Schedule: Now Ordered by: Thang Cunningham DO Entered by: Thang Cunningham DO SatMar 02, 2016 15:57 Documented as given by: Mihaela Bentley RN SatMar 02, 2016 16:02 Patient, Medication, Dose, Route and Time verified prior to administration. IV SITE #1 IV fluids established for hydration, IV SITE #1 into right wrist, IV SITE #1 1st bag hung, amount 500ml hung, IV SITE #1 bolus of 500 ml established, IV SITE #1 Rate of bolus, wide open, via primary tubing, Connections checked prior to administration, Line traced prior to administration, Catheter placement confirmed via flush prior to administration, IV site without signs or symptoms of infiltration during medication administration, No swelling during administration, No drainage during administration, IV flushed after administration, Correct patient, time, route, dose and medication confirmed prior to administration, Patient advised of actions and side-effects prior to administration, Allergies confirmed and medications reviewed prior to administration. : Follow Up : No signs or symptoms of allergic reaction noted, _IV SITE #1:_, IV fluid infusion continued upon transfer from emergency department, on SatMar 02, 2016 16:20, 20 minutes, ., Total amount infused: 300mls. (16:20 SDIS) HPI NAUSEA/VOMITING/DIARRHEA (16:03 MBRI) CHIEF COMPLAINT: Patient presents for evaluation of nausea, Patient presents for evaluation of vomiting, Patient presents for evaluation of dehydration, Patient presents for evaluation of Also states feeling weak and having &a-1R&a+25V*p+0X*q2496Z*c202B*c15G*c2P*p-0X&a-25V&a+1R Name: Berto Romo : 1955 M61 MedRec: [id number] AcctNum: [id number] Prepared: SatMar 05, 2016 09:34 by Interface Page 5 of 10 pMD [facility] EMERGENCY RECORD gaseous feeling in his abd. HISTORIAN: History provided by patient. LOCATION MALE: Symptoms are generalized, no radiation, No migration of pain. QUALITY: Pain is dull in nature. SEVERITY: Maximum severity of symptoms moderate, Currently symptoms are mild. TIME COURSE: Gradual onset of symptoms, Pt has been seen for various complaints multiple times this year to date. Most recently he was dx with AGE and given Rx for Zofran. He states that his nausea gets better on this med but he has continued to feel bloated and gaseous and is burping a lot. He had diarrhea but this has stopped. Now he complains that he has not gone since yesterday. He has been attempting to eat and drink but this makes him feel worse. He is worried about dehydration. ASSOCIATED WITH MALE: No associated recent antibiotic use, No associated bright red blood per rectum, Associated with constipation, No associated diarrhea, No associated fever, No associated flank pain, No associated hematemesis, No associated hematuria, Associated with loss of appetite, No associated melena, Associated with nausea, No associated testicular pain, No associated trauma, No associated recent travel, No associated inability to tolerate oral intake, No associated urinary tract infection signs or symptoms, Associated with vomiting. EXACERBATED BY: Patient's condition exacerbated by food. RELIEVED BY: Patient's condition relieved by nothing. ROS CONSTITUTIONAL: Negative constitutional review of systems, Historian denies chills, denies fever. (14:56 MBRI) EYES: Negative eye review of systems. (14:56 MBRI) ENT: Historian reports dysphagia, denies otalgia, denies rhinorrhea, denies sinus pain, denies sore throat, denies snoring, denies stridor, denies voice changes. (14:56 MBRI) CARDIOVASCULAR: Historian denies chest pain, denies dyspnea on exertion. (14:56 MBRI) RESPIRATORY: Historian denies cough, denies shortness of breath. (14:56 MBRI) GI: Historian denies abdominal pain, denies anorexia, reports appetite changes, denies constipation, denies diarrhea, denies hematemesis, denies hematochezia, denies melena, reports nausea, reports vomiting. Pt was diagnosed with AGE this week and states that his diarrhea has stopped but now he has been feeling increase gaseous distention and has not moved his bowels in a day or so. (14:56 MBRI) GENITOURINARY MALE: Negative genitourinary review of systems, Historian denies dysuria, denies hematuria, denies urinary frequency, denies urine output changes. (15:00 MBRI) MUSCULOSKELETAL: Historian denies injury, Denies any musculoskeletal pain. (14:56 MBRI) SKIN: Negative skin review of systems, Historian denies skin &a-1R&a+25V*p+0X*e7933P*c202B*c15G*c2P*p-0X&a-25V&a+1R Name: Berto Romo : 1955 M61 MedRec: [id number] AcctNum: [id number] Prepared: SatMar 05, 2016 09:34 by Interface Page 6 of 10 pMD [facility] EMERGENCY RECORD changes. (14:56 MBRI) NEUROLOGIC: Negative neurologic review of systems, Historian denies focal weakness, denies sensory changes. (14:56 MBRI) ENDOCRINE: Historian denies polydipsia, denies polyuria. (15:00 MBRI) PAST MEDICAL HISTORY (14:20 SDIS) MEDICAL HISTORY: Notes: Past medical history includes gastrointestinal disease, gastroesophageal reflux disease, Flu vaccine not up to date, Tetanus not up to date, Pneumococcal vaccine not up to date, Past medical history includes history of diabetes, hx of angioedema, Past medical history includes history of hypertension. MALE SURGICAL HISTORY: H/O HEART CATH 20 YEARS PRIOR. PSYCHIATRIC HISTORY: No previous psychiatric history. SOCIAL HISTORY: Patient denies alcohol use, Patient denies drug use, Patient has no smoking history. PHYSICAL EXAM CONSTITUTIONAL: Vital Signs Reviewed, Nursing notes reviewed. (14:56 MBRI) HEAD: Head exam included findings of head atraumatic, normocephalic. (14:56 MBRI) EYES: Eye exam included findings of eyelids normal to inspection, Pupils equally round and reactive to light, Extraocular muscles intact. (14:56 MBRI) ENT: Ear exam normal, tympanic membranes normal, Nose exam normal, Pharynx exam normal, not injected. (14:56 MBRI) NECK: Neck exam normal, Neck exam included findings of normal range of motion, Trachea midline. (14:56 MBRI) RESPIRATORY CHEST: Respiratory exam included findings of no respiratory distress, Breath sounds clear, No wheezing, No rales, No rhonchi. (14:56 MBRI) CARDIOVASCULAR: Cardiovascular exam included findings of heart rate regular rate and rhythm, Heart sounds normal, Carotids normal. (14:56 MBRI) ABDOMEN MALE: Abdominal exam included findings of abdomen nontender, Bowel sounds normal, no distension, no peritoneal signs, no rigidity, no guarding, no rebound. (14:56 MBRI) GENITOURINARY MALE: External genitalia normal. (15:01 MBRI) BACK: Back exam included findings of normal inspection, no tenderness. (14:56 MBRI) UPPER EXTREMITY: Upper extremity exam included findings of inspection normal, Range of motion normal, Motor strength normal, Radial pulse normal, no cyanosis, no clubbing, no edema. (14:56 MBRI) LOWER EXTREMITY: Lower extremity exam included findings of inspection normal, Range of motion normal, Motor strength normal, Pedal pulse normal, no cyanosis, no clubbing, no edema. (14:56 MBRI) NEURO: Neuro exam findings include patient oriented to person, place and time, Speech normal, Gait normal. (14:56 MBRI) &a-1R&a+25V*p+0X*l3586H*c202B*c15G*c2P*p-0X&a-25V&a+1R Name: Berto Romo : 1955 M61 MedRec: [id number] AcctNum: [id number] Prepared: SatMar 05, 2016 09:34 by Interface Page 7 of 10 pMD [facility] EMERGENCY RECORD SKIN: Skin exam included findings of skin warm, dry, and normal in color. (14:56 MBRI) LAB INTERPRETATION (16:06 MBRI) INTERPRETATION: I reviewed the lab results. EVENTS TRANSFER: Triage to Emergency Triage. (SatMar 02, 2016 14:18 SDIS) Emergency Triage to Emergency Room -03. (14:18 SDIS) Removed from Emergency Emergency Room -03. (16:26 LGIB) EKG INTERPRETATION (15:01 MBRI) 12 LEAD EKG INTERPRETATION: 12 lead EKG interpreted by Emergency Department Physician at time of study, 12 lead EKG shows normal sinus rhythm, Rate (beats per minute): 84, with no ectopics, Conduction normal, ST segments normal, T waves normal, [place] normal. O2SAT INTERPRETATION (14:27 MBRI) O2SAT: Oxygen saturation interpretation: Normal. DOCTOR NOTES (16:06 MBRI) TEXT: Pt stable. Labs discussed with pt and I rec admission for fluids and hydration and treatment of his low sodium level. He agrees and would like to be admitted to this facility. Discussed with Dr Bautista, who agrees with plan of care. Orders written, pt stable for med floor. PATIENT STATUS: Patient has stabilized since arrival to emergency department. PATIENT PLAN: The patient will be admitted to the hospital, Initial physician orders were written for patient as discussed with admitting physician, The patient will be admitted to a medical floor. DATA REVIEWED: Lab data reviewed, Discussed with consultants. PROBLEM LIST No recorded problems DIAGNOSIS (15:39 MBRI) FINAL: PRIMARY: Hyponatremia, ADDITIONAL: nausea and vomiting. DISPOSITION PATIENT: Disposition Type: Admit, Disposition: [facility], Condition: Fair. (15:39 MBRI) Patient left the department. (16:26 LGIB) PRESCRIPTION No recorded prescriptions IMAGING &a-1R&a+25V*p+0X*n9402J*c202B*c15G*c2P*p-0X&a-25V&a+1R Name: Berto Romo : 1955 M61 MedRec: [id number] AcctNum: [id number] Prepared: SatMar 05, 2016 09:34 by Interface Page 8 of 10 pMD [facility] EMERGENCY RECORD *EKG: Image captured from scanner. (15:15 LGIB) ADMISSION ORDERS: Image captured from scanner. (16:01 LGIB) *SUPPLY CHARGE SHEET: Image captured from scanner. (16:34 LGIB) ADMIN (SatMar 05, 2016 09:25 MBRI) DIGITAL SIGNATURE: DO Cunningham Matthew. RESULTS (15:35 MBRI) LABORATORY: Lipase Collection DT: SatMar 02, 2016 14:53, Lipase 32 U/L, Range (8-78). Comprehensive Metabolic Panel Collection DT: SatMar 02, 2016 14:53, *Sodium 124 - L mmol/L, Range (136-145), Potassium 3.6 mmol/L, Range (3.5-5.1), *Chloride 90 - L mmol/L, Range (98-107), Carbon Dioxide 23 mmol/L, Range (23-31), Anion Gap 15 mmol/L, Range (10-20), *BUN (Urea Nitrogen) 8 - L mg/dL, Range (8.4-25.7), Creatinine 0.82 mg/dL, Range (0.7-1.3), Estimated GFR-MDRD Greater than 90 , Reference Range for Estimated GFR: Greater than 90, mL/min/1.73 m2 NOTE: The MDRD equation has not been validated for use, with the elderly (over 70 years of age), women, patients with, serious comorbid condition or persons with extremes of body size, muscle, mass, or nutritional status. , *Glucose 167 - H mg/dL, Range (80-115), Calcium 8.7 mg/dL, Range (7.8-10.44), Bilirubin, Total 0.9 mg/dL, Range (0.2-1.2), Protein, Total 6.4 g/dL, Range (5.8-8.1), NOTE: Plasma values are generally 0.3 to 0.5 g/dL higher than serum values, due to the presence of fibrinogen. , Albumin 3.6 g/dL, Range (3.4-4.8), Globulin 2.8 g/dL, Range (2.4-3.5), Alb/Glob Ratio 1.3 g/dL, Range (1.2-2.2), Alkaline Phosphatase 71 U/L, Range (40-150), AST (SGOT) 29 U/L, Range (5-34), ALT (SGPT) 42 U/L, Range (0-55). Accuchek Collection DT: SatMar 02, 2016 14:58, *Accuchek 160 - H mg/dL, Range (70-110). CBC with Differential Collection DT: SatMar 02, 2016 14:53, White Blood Cell (WBC) Count 9.9 thou/uL, Range (4.8-10.8), Red Blood Cell (RBC) Count 4.88 mill/uL, Range (4.70-6.10), Hemoglobin 14.5 g/dL, Range (14.0-18.0), Hematocrit 44.7 %, Range (42.0-52.0), Mean Corpuscular Volume 91.7 fl, Range (80.0-94.0), Mean Corpuscular Hemoglobin 29.7 pg, Range (27.0-31.0), Mean Corpuscular HGB CONC 32.4 g/dL, Range (32.0-36.0), &a-1R&a+25V*p+0X*r4142S*c202B*c15G*c2P*p-0X&a-25V&a+1R Name: Berto Romo : 1955 M61 MedRec: [id number] AcctNum: [id number] Prepared: SatMar 05, 2016 09:34 by Interface Page 9 of 10 pMD [facility] EMERGENC[facility] RECORD RBC Distribution Width 11.5 %, Range (11.5-14.5), Platelet Count 207 thou/uL, Range (130-400), Mean Platelet Volume 7.9 fL, Range (7.4-10.4), *%Neutrophils 76.6 - H %, Range (42.0-75.0), *%Lymphocytes 13.9 - L %, Range (21.0-51.0), %Monocytes 8.3 %, Range (0.0-10.0), %Eosinophils 0.5 %, Range (0.0-10.0), %Basophils 0.8 %, Range (0.0-1.0), *#Neutrophils 7.6 - H thou/uL, Range (1.40-6.50), #Lymphocytes 1.4 thou/uL, Range (1.20-3.40), *#Monocytes 0.8 - H thou/uL, Range (0.11-0.59), #Eosinphils 0.0 thou/uL, Range (0.0-0.7), #Basophils 0.1 thou/uL, Range (0.0-0.2). Falk: JOANNA=SCOUT Kincaid Lauren MBRI=DO Cunningham Matthew SDIS=SCOUT Bentley Saundra &a-1R&a+25V*p+0X*n9278D*c202B*c15G*c2P*p-0X&a-25V&a+1R Name: Berto Romo : 1955 M61 MedRec: [id number] AcctNum: [id number] Prepared: SatMar 05, 2016 09:34 by Interface Page 10 of 10 pMD [facility]TDD
[2016-03-02] MEDS: Sodium Chloride 0.9% 1,000 ML IV SCH (17:00)
[2016-03-02] MEDS ORDERED: EPINEPHRINE 0.3 MG IM PRN (17:27)
[2016-03-02] MEDS ORDERED: Ondansetron ODT 4 MG TAB PO PRN (17:41)
[2016-03-02] MEDS ORDERED: Acetaminophen 325 MG TAB PO PRN (17:44)
[2016-03-02] MEDS ORDERED: Ondansetron HCl/PF 4 MG/2 ML Vial IVP PRN (17:44)
[2016-03-02] MEDS ORDERED: Ondansetron ODT 4 MG TAB SL PRN (17:44)
[2016-03-02 19:32] VITALS: BMI 32.9
--- NOTE | 2016-03-03 00:30 | HP ---
DATE OF ADMISSION: 03/02/2016 DATE OF DISCHARGE: 03/03/16 CHIEF COMPLAINT: Nausea, vomiting, and diarrhea. HISTORY OF PRESENT ILLNESS: 61-year-old male, who presented to [facility] with symptoms of viral gastroenteritis. Subsequent evaluation of labs showed a sodium level of 124. The patient states he had emesis and diarrhea that began 2 days prior; however, has had no further emesis or diarrhea since his presentation to the emergency department. He was treated for hyperglycemia and hypertension a week ago at [facility] and reports this to have stabilized since that time. His primary care provider is Dr. Kasi bacon [place] who he is to follow up with in the next couple weeks for A1c check. He is currently comfortable and receiving intravenous fluids with the understanding that he needs correction of electrolyte abnormalities. PAST MEDICAL HISTORY: gastroesophageal reflux disease, hypertension, diabetes mellitus type 2. PAST SURGICAL HISTORY: Heart catheterization 20 years ago not requiring stent placement and he has had prior tooth extraction. SOCIAL HISTORY: He is a nonsmoker and does not drink. No illicit drugs. He lives with his brother. FAMILY HISTORY: Father of lymphatic cancer. Mother is with h/o Alzheimer's. ALLERGIES: No known drug allergies. CURRENT MEDICATIONS: Include cholecalciferol 1000 units p.o. daily, hydrochlorothiazide 25 mg p.o. daily, omeprazole 40 mg p.o. daily, Flonase p.r.n., lisinopril 10 mg p.o. daily, metformin 500 mg one tablet every morning and two tablets every evening. REVIEW OF SYSTEMS: general: Denies fever, chills, or diaphoresis. Ears, nose , and throat: Denies sore throat, nasal drainage, or congestion. Cardiovascular: Denies chest pain, palpitations. Respiratory: Denies shortness of breath or cough. Gastrointestinal: Complains of mild abdominal discomfort, nausea, vomiting, and diarrhea. Genitourinary: Denies dysuria or hematuria. Musculoskeletal: Denies joint swelling or joint pain. Dermatologic : There is a rash to bilateral upper extremities. Neurological: Denies headache. LABORATORY DATA: no anemia or leukocytosis. Chemistry showed a sodium level of 124, potassium was normal at 3.6, BUN and creatinine was normal. GFR was normal. LFTs were normal. Lipase level was normal at 32. His blood sugar was 167. PHYSICAL EXAMINATION: VITAL SIGNS: Temperature is 98.3, pulse 93, respiratory rate is 20, oxygen saturation 93% on room air, blood pressure is 135/87 IN GENERAL: He is alert and oriented, in no acute distress. He is overweight. HEAD, EYES, EARS, NOSE, AND THROAT: Pupils are equal, round, and reactive to light. Extraocular muscles are intact. Moist mucous membranes. NECK: Supple, with no lymphadenopathy, no meningeal signs. CARDIOVASCULAR: Regular rate and rhythm, normal S1 and S2. No murmurs, rubs, or gallops. RESPIRATORY: Clear to auscultation bilaterally without wheezes, rales, or rhonchi. GASTROINTESTINAL: Protuberant abdomen. Nontender to palpation. No guarding or rebound. Normal bowel sounds EXTREMITIES: No clubbing, cyanosis, or edema. DERMATOLOGIC: He has scattered areas of annular rash with areas of central clearing and hyperpigmented borders to bilateral upper extremities. NEUROLOGICAL: Cranial nerves II through XII are intact. No focal deficits. ASSESSMENT AND PLAN: 1. Hyponatremia. He received a 500 mL bolus in the emergency department. He has since transitioned to normal saline intravenous fluids at 125 mL an hour. This will be continued throughout the night and CMP will be reassessed in the morning. 2. Viral gastroenteritis. We will provide the patient with a probiotic and Zofran p.r.n. and Bentyl p.r.n. He is receiving intravenous fluids for rehydration; will provide diabetic diet. 3. Diabetes mellitus. We will continue home metformin. 4. Hypertension. We will continue home medications, hydrochlorothiazide, and lisinopril. 5. Prophylaxis: we will resume his home PPI and provide Lovenox 03/03/16 update: patient's sodium has corrected to 140 and he feels well; no overnight events; his intake and output is at baseline; he is appropriate for discharge home and may f/u with Dr. Villaseñor next week; he will be discharge on his usual home medications along with a one week course of Florastor, prn Zofran and prn Bentyl. MTDD
[2016-03-03] MEDS: Sodium Chloride 0.9% 1,000 ML IV SCH (01:18)
[2016-03-03 05:40] LABS: ALT (SGPT) 43 U/L (0-55); AST (SGOT) 32 U/L (5-34); Alkaline Phosphatase 71 U/L (40-150); Anion Gap 13 mmol/L (10-20); BUN (Urea Nitrogen) 7 mg/dL (8.4-25.7); Bilirubin, Total 0.8 mg/dL (0.2-1.2); Calc. Creatinine Clearance 135 mL/min (70-130); Calcium 8.9 mg/dL (7.8-10.44); Carbon Dioxide 25 mmol/L (23-31); Chloride 106 mmol/L (98-107); Estimated GFR-MDRD Greater than 90; Globulin 2.9 g/dL (2.4-3.5); Protein, Total 6.5 g/dL (5.8-8.1)
[2016-03-03] MEDS ORDERED: Enoxaparin Sodium 30 MG/0.3 ML SYRINGE SC SCH (06:00)
[2016-03-03] MEDS ORDERED: Fluticasone Propionate Nasal Spray 16 gm Bottle NASAL SCH (09:00)
[2016-03-03] MEDS ORDERED: Lisinopril 10 MG TAB PO SCH (09:00)
[2016-03-03] MEDS ORDERED: Hydrochlorothiazide 25 MG TAB PO SCH (09:00)
[2016-03-03] MEDS ORDERED: metFORMIN HCl XR 500 MG TAB PO SCH ×2 (09:00→17:00)
[2016-03-03] MEDS ORDERED: Saccharomyces boulardii 250 MG CAP PO SCH (09:00)
[2016-03-03] MEDS ORDERED: FLU VACC QS2016-17 36MOS UP/PF 0.5 ML SYRINGE IM ONE (09:00)
[2016-03-03 12:12] VITALS: BP 147/93; TEMP 98.6
== END 2016-03-03 11:45 | disposition home or self-care (01) ==
LOC: BURERS 14:13 → BURMED 15:56
PROVIDERS: ADMIT Family Medicine; ATTEND Family Medicine
DX: E87.1 Hypo-osmolality and hyponatremia (principal); K21.9 Gastro-esophageal reflux disease without esophagitis; E11.9 Type 2 diabetes mellitus without complications; I10 Essential (primary) hypertension
CPT/HCPCS: 36415; 36416; 80053; 81003; 81015; 83690; 85025; 93005; 96372; J1650; Q0162

== ENCOUNTER 2016-03-06 07:35 | Emergency (ER) | payer BC ==
[2016-03-06 08:11] LABS: Bilirubin Negative (Negative); Blood, Urine Negative (Negative); Glucose, Urine (Dipstick) 100 mg/dL (Negative); Ketone, Urine Negative (Negative); Nitrite Negative (Negative); Protein, Urine (Dipstick) Negative (Neg-Trace); Urobilinogen 0.2 mg/dL (0.2-1.0)
[2016-03-06 08:15] LABS: #Basophils 0.1 thou/uL (0.0-0.2); #Eosinphils 0.1 thou/uL (0.0-0.7); #Lymphocytes 1.9 thou/uL (1.20-3.40); #Monocytes 0.9 thou/uL (0.11-0.59); #Neutrophils 7.4 thou/uL (1.40-6.50); %Eosinophils 1.4 % (0.0-10.0); %Monocytes 8.2 % (0.0-10.0); Hematocrit 43.9 % (42.0-52.0); Mean Platelet Volume 7.8 fL (7.4-10.4); Red Blood Cell (RBC) Count 4.82 mill/uL (4.70-6.10); White Blood Cell (WBC) Count 10.4 thou/uL (4.8-10.8)
[2016-03-06 08:28] LABS: ALT (SGPT) 47 U/L (0-55); AST (SGOT) 39 U/L (5-34); Alkaline Phosphatase 73 U/L (40-150); Anion Gap 16 mmol/L (10-20); BUN (Urea Nitrogen) 9 mg/dL (8.4-25.7); Bilirubin, Total 1.7 mg/dL (0.2-1.2); Calc. Creatinine Clearance 0 mL/min (70-130); Calcium 8.4 mg/dL (7.8-10.44); Carbon Dioxide 22 mmol/L (23-31); Chloride 92 mmol/L (98-107); Estimated GFR-MDRD Greater than 90; Lipase 31 U/L (8-78); Protein, Total 6.6 g/dL (5.8-8.1)
--- NOTE | 2016-03-06 10:43 | ERRECORD ---
[facility] EMERGENCY RECORD HPI GENERAL (08:01 MBRI) CHIEF COMPLAINT: Patient presents for evaluation of 61 yo male presents for evaluation following an episode of pain in the back in the area of his left shoulder blade that radiated toward his neck. This pain lasted for several minutes but has resolved spontaneously prior to arrival. He also states that he was feeling some sob at home but that that improved when he went outside to come to the ED. He was released from the hospital on Saturday from an admission for n/v and hyponatremia. HISTORIAN: History provided by patient. MECHANISM OF INJURY: Unknown mechanism. LOCATION: No localizing symptoms. QUALITY: Unable to describe the quality of the pain. SEVERITY: Maximum severity of symptoms mild, Currently there are no symptoms. TIME COURSE: Gradual onset of symptoms, Symptoms have resolved, are intermittent. RELIEVED BY: Patient's condition relieved spontaneously. ROS (07:56 MBRI) CONSTITUTIONAL: Negative constitutional review of systems, Historian denies chills, denies fever. EYES: Negative eye review of systems. ENT: Historian denies rhinorrhea, denies sore throat. CARDIOVASCULAR: Historian denies chest pain, denies dyspnea on exertion. RESPIRATORY: Historian denies cough, denies shortness of breath. GI: Negative gastrointestinal review of systems, Historian denies abdominal pain, denies diarrhea, denies nausea, denies vomiting. GENITOURINARY MALE: Negative genitourinary review of systems. MUSCULOSKELETAL: Historian denies arthralgias, reports back pain, denies deformity, denies fall, denies injury, denies neck pain. Now resolved. SKIN: Negative skin review of systems, Historian denies skin changes. NEUROLOGIC: Historian denies dizziness, denies focal weakness, reports headache, denies mental status changes, denies paresthesias, denies sensory changes, denies speech changes, denies vertigo. Now resolved. PAST MEDICAL HISTORY (07:46 LGIB) MEDICAL HISTORY: Past medical history includes gastrointestinal disease, gastroesophageal reflux disease, Flu vaccine not up to date, Tetanus not up to date, Pneumococcal vaccine not up to date, Past medical history includes history of diabetes, hx of angioedema, Past medical history includes history of hypertension. verified 03/06/16. MALE SURGICAL HISTORY: H/O HEART CATH 20 YEARS PRIOR. verified 03/06/16. PSYCHIATRIC HISTORY: No previous psychiatric history &a-1R&a+25V*p+0X*[id number]*c202B*c15G*c2P*p-0X&a-25V&a+1R Name: Berto Romo : 1955 M61 MedRec: [id number] AcctNum: [id number] Prepared: Elza Mar 06, 2016 10:39 by Interface Page 1 of 4 pMD [facility] EMERGENCY RECORD verified 03/06/16. SOCIAL HISTORY: Patient denies alcohol use, Patient denies drug use, Patient has no smoking history. verified 03/06/16. KNOWN ALLERGIES No Known Drug Allergies CURRENT MEDICATIONS (07:50 LGIB) hydrochlorothiazide: TABLET : Strength - 25 mg : ORAL Patient Dose: 25 mg Oral once a day. omeprazole: CAPSULE,DELAYED RELEASE (ENTERIC COATED) : Strength - 40 mg : ORAL Patient Dose: 40 mg Oral once a day. metFORMIN: TABLET : Strength - 500 mg : ORAL Patient Dose: 500 mg Oral See Notes.1 TAB Q AM, 2 TAB Q HS. lisinopril: TABLET : Strength - 10 mg : ORAL Patient Dose: 10 mg Oral once a day. Flonase: SPRAY, SUSPENSION : Strength - 50 mcg : NASAL Patient Dose: 2 spray(s) Nares Both once a day (in the morning). VITAL SIGNS VITAL SIGNS: BP: 157/102, Pulse: 84, Resp: 18 (Non-Labored), Temp: 98.4 (Oral), Pain: 1, O2 sat: 95 on Room Air, Time: 03/06/2016 07:45. (07:45 LGIB) BP: 128/95, Pulse: 87, Resp: 14, Pain: 0, O2 sat: 93, Time: 03/06/2016 09:42. (09:42 JSMI) PHYSICAL EXAM (07:56 MBRI) CONSTITUTIONAL: Vital Signs Reviewed, Nursing notes reviewed. HEAD: Head exam included findings of head atraumatic, normocephalic. EYES: Eye exam included findings of eyelids normal to inspection, Pupils equally round and reactive to light, Extraocular muscles intact. ENT: Ear exam normal, tympanic membranes normal, Nose exam normal, Pharynx exam normal, not injected. NECK: Neck exam normal, Neck exam included findings of normal range of motion, Trachea midline. RESPIRATORY CHEST: Respiratory exam included findings of no respiratory distress, Breath sounds clear, No wheezing, No rales, No rhonchi. CARDIOVASCULAR: Cardiovascular exam included findings of heart rate regular rate and rhythm, Heart sounds normal, Carotids normal. ABDOMEN MALE: Abdominal exam included findings of abdomen nontender, Bowel sounds normal, no distension, no peritoneal signs, &a-1R&a+25V*p+0X*[id number]*c202B*c15G*c2P*p-0X&a-25V&a+1R Name: Berto Romo : 1955 M61 MedRec: [id number] AcctNum: [id number] Prepared: Elza Mar 06, 2016 10:39 by Interface Page 2 of 4 pMD [facility] EMERGENCY RECORD no rigidity, no guarding, no rebound. BACK: Back exam included findings of normal inspection, no tenderness. UPPER EXTREMITY: Upper extremity exam included findings of inspection normal, Range of motion normal, Motor strength normal, Radial pulse normal, no cyanosis, no clubbing, no edema. LOWER EXTREMITY: Lower extremity exam included findings of inspection normal, Range of motion normal, Motor strength normal, Pedal pulse normal, no cyanosis, no clubbing, no edema. NEURO: Ilda coma scale 15, Neuro exam findings include patient oriented to person, place and time, Speech normal, Gait normal, Cranial nerves intact, no focal motor deficits, no focal sensory deficits, no cerebellar deficits. SKIN: Skin exam included findings of skin warm, dry, and normal in color, nummular lesions of various shape and size noted to the upper extremities. No infection noted. MEDICATION ADMINISTRATION SUMMARY Drug Name: sodium chloride 0.9 % intravenous, Dose Ordered: 100 mL/hr, Route: IV Fluid Infusion, Status: Given, Time: 09:40 03/06/2016, Drug Name: *sodium chloride 0.9 % intravenous, Dose Ordered: 500 mL, Route: IV Fluid Infusion, Status: Given, Time: 09:03 03/06/2016, *Additional information available in notes, Detailed record available in Medication Service section. DOCTOR NOTES (09:04 MBRI) TEXT: Pt with recurrent low Sodium and given the correction done 3 days ago I have rec admission and higher level of care for further evaluation. Pt stable for care and ground transfer. discussed with Dr Amin at [facility], accepted for further care. PATIENT STATUS: Patient has stabilized since arrival to emergency department. PATIENT PLAN: The patient requires a transfer and will be transferred, per physician request, due to availability of specialty care, Transfer form completed. DATA REVIEWED: Lab data reviewed. PROBLEM LIST No recorded problems DIAGNOSIS (09:02 MBRI) FINAL: PRIMARY: Hyponatremia. PRESCRIPTION No recorded prescriptions DISPOSITION PATIENT: Disposition Type: Transfer, Disposition: Transfer to &a-1R&a+25V*p+0X*[id number]*c202B*c15G*c2P*p-0X&a-25V&a+1R Name: Berto Romo : 1955 [facility] [place]: [id number] AcctNum: [id number] Prepared: SatMar 06, 2016 10:39 by Interface Page 3 of 4 pMD [facility] EMERGENCY RECORD [facility], Condition: Good. (09:02 MBRI) Patient left the department. (10:36 LGIB) Falk: JSMI=SCOUT Gomez, Mally LGIB=SCOUT Kincaid, Aydee MBRI=DO Cunningham Matthew &a-1R&a+25V*p+0X*[id number]*c202B*c15G*c2P*p-0X&a-25V&a+1R Name: Berto Romo : 1955 1 MedRec: [id number] AcctNum: [id number] Prepared: SatMar 06, 2016 10:39 by Interface Page 4 of 4 pMD MTDD
--- NOTE | 2016-03-06 10:49 | PICIS ---
[facility] EMERGENCY RECORD COMMUNICATIONS (08:55 LGIB) COMMUNICATIONS: Notes: TRANSFER CENTER CALLED FOR PT ACCEPTANCE TO [facility]. TRIAGE (SatMar 06, 2016 07:40 LGIB) TRIAGE NOTES: headache, nauseous. (SatMar 06, 2016 07:40 LGIB) PATIENT: NAME: Berto Romo, AGE: 61, GENDER: male, : Sun 1955, TIME OF GREET: SatMar 06, 2016 07:35, PREFERRED LANGUAGE: Angolan, ETHNICITY: Not or , ECODE BILLING MAP: [facility], SSN: [id number], Zip Code: [address], KG WEIGHT: 99.79, PHONE: , , , PERSON ID: [id number], PAYMENT: [employer], PCP: Jose G MCBRIDE STEPHEN. (SatMar 06, 2016 07:40 LGIB) COMPLAINT: headache, nauseous. (SatMar 06, 2016 07:40 LGIB) ADMISSION: URGENCY: 3 Urgent, ADMISSION SOURCE: Home, TRANSPORT: CAR, BED: TRIAGE. (SatMar 06, 2016 07:40 LGIB) SIRS SCORING: Heart Rate 55-109 (0), Temp range 96.8-101.1 (0), respiratory rate 12-24 (0), Mental Status altered: no (0), Total SIRS Score 0. (07:45 LGIB) PROVIDERS: TRIAGE NURSE: Aydee Kincaid RN. (SatMar 06, 2016 07:40 LGIB) PREVIOUS VISIT ALLERGIES: No Known Drug Allergies. (SatMar 06, 2016 07:40 LGIB) No Known Drug Allergies. (07:46 LGIB) KNOWN ALLERGIES No Known Drug Allergies CURRENT MEDICATIONS (07:50 LGIB) hydrochlorothiazide: TABLET : Strength - 25 mg : ORAL Patient Dose: 25 mg Oral once a day. omeprazole: CAPSULE,DELAYED RELEASE (ENTERIC COATED) : Strength - 40 mg : ORAL Patient Dose: 40 mg Oral once a day. metFORMIN: TABLET : Strength - 500 mg : ORAL Patient Dose: 500 mg Oral See Notes.1 TAB Q AM, 2 TAB Q HS. lisinopril: TABLET : Strength - 10 mg : ORAL Patient Dose: 10 mg Oral once a day. Flonase: SPRAY, SUSPENSION : Strength - 50 mcg : NASAL Patient Dose: 2 spray(s) Nares Both once a day (in the morning). VITAL SIGNS VITAL SIGNS: BP: 157/102, Pulse: 84, Resp: 18 (Non-Labored), Temp: 98.4 (Oral), Pain: 1, O2 sat: 95 on Room Air, Time: 03/06/2016 &a-1R&a+25V*p+0X*r3442V*c202B*c15G*c2P*p-0X&a-25V&a+1R Name: Berto Romo : 1955 M61 MedRec: [id number] AcctNum: [id number] Prepared: Elza Mar 06, 2016 10:46 by Interface Page 1 of 9 pMD [facility] EMERGENCY RECORD 07:45. (07:45 LGIB) BP: 128/95, Pulse: 87, Resp: 14, Pain: 0, O2 sat: 93, Time: 03/06/2016 09:42. (09:42 [facility]) NURSING ASSESSMENT: FALL RISK (09:14 LGIB) FALL RISK: Fall risk assessment findings include: no history of falls (0), No bed rest greater than 2 days (0), No use of level of consciousness altering agents with mentation or cognitive changes (0), No change in blood pressure (0), No sensory deficits (0), No impaired mobility (0), No neurologic diagnosis (0), No elimination problems (0), No confusion (0), Total score 0. NURSING ASSESSMENT: FOCUSED (07:55 LGIB) CONSTITUTIONAL: Complex assessment performed, Patient arrives ambulatory, Gait steady, History obtained from patient, Patient appears comfortable, Patient cooperative, Patient alert, Oriented to person, place and time, Skin warm, Skin dry, Skin normal in color, Mucous membranes pink, Mucous membranes moist, Patient is well-groomed, Patient complains of headache, nauseous, pt reports having a headache that started this morning. pt also reports episodes of nausea since this morning. NAD, RR even and unlabored. PAIN: aching pain, headache, on a scale 0-10 patient rates pain as 1. EYES: Focused eye assessment finding include pupils equally round and reactive to light, Left pupil 3 mm in size, Right pupil 3 mm in size. NEURO: Focused neuro assessment findings include patient alert, cooperative, No facial droop noted, Speech coherent, no weakness, no numbness. RESPIRATORY: Focused respiratory assessment findings include breath sounds clear, to bilateral upper lobes, to the right middle lobe, to bilateral lower lobes. ABDOMEN: Focused abdominal assessment findings include abdomen soft, non tender, no diarrhea, Nausea present, no vomiting, Bowel sounds present. MUSCULOSKELETAL: Focused musculoskeletal assessment findings include normal range of motion. SAFETY: Side rails up, Cart/Stretcher in lowest position, Call light within reach, Hospital ID band on. NURSING ASSESSMENT: SKIN (09:14 LGIB) SKIN: Notes: PT DOES NOT HAVE SKIN BREAKDOWN OR PRESSURE ULCER FORMATION. NURSING PROCEDURE: BELONGINGS (10:03 LGIB) BELONGINGS: hat, jacket, pants, Description BLUE JEANS, shoes, Notes: IPAD, IPHONE, EPI-PEN, CLOTHING, UN-INVENTORIED WALLET PLACED IN PATIENT BELONGINGS BAG. &a-1R&a+25V*p+0X*n4001G*c202B*c15G*c2P*p-0X&a-25V&a+1R Name: Berto Romo : 1955 M61 MedRec: [id number] AcctNum: [id number] Prepared: Elza Mar 06, 2016 10:46 by Interface Page 2 of 9 pMD [facility] EMERGENCY RECORD NURSING PROCEDURE: IV (08:00 LGIB) IV SITE 1: IV therapy indicated for medication administration, IV established, to the right forearm, using an 18 gauge catheter, in one attempt, Saline lock established, Flushed with normal saline (mls): 10, Labs drawn at time of placement, labeled in the presence of the patient and sent to lab. NURSING PROCEDURE: NURSE NOTES NURSES NOTES: Notes: PT IN NAD, RR EVEN AND UNLABORED. NO NEEDS AT THIS TIME. (09:00 LGIB) Notes: PER TRANSFER CENTER, PATIENT NEEDS TO BE HELD IN THE [facility] ER SINCE HE IS STABLE. [facility] CURRENTLY ON CODE [facility] AND HAVE MANY HOLDS IN THE ER. (09:12 LGIB) Notes: CONTACTED TRANSFER CENTER AND THEY DO HAVE SURGICAL BEDS. PT WILL HAVE A SURGICAL BED AND CAN BE TRANSFERED SOON POSSIBLE. (09:40 LGIB) NURSING PROCEDURE: URINE COLLECTION (08:00 LGIB) URINE COLLECTION MALE: Urine collected by void, output amount (mL) 60, urine yellow in color, and clear, Specimen labeled in the presence of the patient and sent to lab. ORDER DETAILS Order Name: CBC with Differential, Status: Active, Time: 07:50 03/06/2016, User: BETY, - Ordered for: DO Cunningham Matthew, - Entered by: DO Cunningham Matthew - Tue Mar 06, 2016 07:50, - Quantity: 1, Order Name: Comprehensive Metabolic Panel, Status: Active, Time: 07:50 03/06/2016, User: BETY, - Ordered for: DO Cunningham Matthew, - Entered by: DO Cunningham Matthew - Tue Mar 06, 2016 07:50, - Quantity: 1, Order Name: Cortisol, Serum, Status: Active, Time: 08:57 03/06/2016, User: BETY, - Ordered for: DO Cunningham Matthew, - Entered by: DO Cunningham Matthew - Tue Mar 06, 2016 08:57, - Quantity: 1, Order Name: Lipase, Status: Active, Time: 07:50 03/06/2016, User: BETY, - Ordered for: DO Cunningham Matthew, - Entered by: DO Cunningham Matthew - Tue Mar 06, 2016 07:50, - Quantity: 1, Order Name: SALINE LOCK, Status: Done, Time: 08:01 03/06/2016, User: JOANNA, - Ordered for: DO Cunningham Matthew, - Entered by: DO Cunningham Matthew - Tue Mar 06, 2016 07:50, - Quantity: 1, Order Name: Thyroid Stimulating Hormone, Status: Active, Time: 08:57 &a-1R&a+25V*p+0X*c5857J*c202B*c15G*c2P*p-0X&a-25V&a+1R Name: Berto Romo : 1955 M61 MedRec: [id number] AcctNum: [id number] Prepared: SatMar 06, 2016 10:46 by Interface Page 3 of 9 pMD [facility] EMERGENCY RECORD 03/06/2016, User: BETY, - Ordered for: DO Cunningham Matthew, - Entered by: DO Cunningham Matthew - Tue Mar 06, 2016 08:57, - Quantity: 1, Order Name: Urinalysis w/ Rflx Microscopic, Status: Active, Time: 07:50 03/06/2016, User: BETY, - Ordered for: DO Cunningham Matthew, - Entered by: DO Cunningham Matthew - Tue Mar 06, 2016 07:50, - Quantity: 1. MEDICATION ADMINISTRATION SUMMARY Drug Name: sodium chloride 0.9 % intravenous, Dose Ordered: 100 mL/hr, Route: IV Fluid Infusion, Status: Given, Time: 09:40 03/06/2016, Drug Name: *sodium chloride 0.9 % intravenous, Dose Ordered: 500 mL, Route: IV Fluid Infusion, Status: Given, Time: 09:03 03/06/2016, *Additional information available in notes, Detailed record available in Medication Service section. MEDICATION SERVICE sodium chloride 0.9 % intravenous: Order: sodium chloride 0.9 % intravenous (0.9 % sodium chloride) - Dose: 500 mL : IV Fluid Infusion Notes: (Bolus) Ordered by: Thang Cunningham DO Entered by: Thang Cunningham DO SatMar 06, 2016 09:02 , Acknowledged by: Aydee Kincaid RN SatMar 06, 2016 09:03 Documented as given by: Aydee Kincaid RN SatMar 06, 2016 09:03 Patient, Medication, Dose, Route and Time verified prior to administration. IV SITE #1 IV fluids established for hydration, IV SITE #1 into right forearm, IV SITE #1 1st bag hung, amount 500ml hung, IV SITE #1 bolus of 500 ml established, via primary tubing, Catheter placement confirmed via flush prior to administration, IV site without signs or symptoms of infiltration during medication administration, No swelling during administration, No drainage during administration, IV flushed after administration, Correct patient, time, route, dose and medication confirmed prior to administration, Patient advised of actions and side-effects prior to administration, Allergies confirmed and medications reviewed prior to administration, Patient in position of comfort, Side rails up, Cart in lowest position. sodium chloride 0.9 % intravenous: _IV SITE #1:_, Medication infusion discontinued, on SatMar 06, 2016 09:40, 40 minutes, ., Total amount infused: 500, BP: 128, / 95, Pulse: 87, Resp: 14, Pain: 0, O2 sat: 93. (09:42 [facility]) sodium chloride 0.9 % intravenous: Order: sodium chloride 0.9 % intravenous (0.9 % sodium chloride) - Dose: 100 mL/hr : IV Fluid Infusion Ordered by: Thang Cunningham DO &a-1R&a+25V*p+0X*a6547F*c202B*c15G*c2P*p-0X&a-25V&a+1R Name: Berto Romo : 1955 M61 MedRec: [id number] AcctNum: [id number] Prepared: SatMar 06, 2016 10:46 by Interface Page 4 of 9 pMD [facility] EMERGENCY RECORD Entered by: Thang Cunningham DO SatMar 06, 2016 09:03 , Acknowledged by: Aydee Kincaid RN SatMar 06, 2016 09:07 Documented as given by: Mally Gomez RN SatMar 06, 2016 09:40 Patient, Medication, Dose, Route and Time verified prior to administration. IV SITE #1 IV fluids established for hydration, IV SITE #1 After bolus completed rate changed to 100 ml/hr, IV SITE #1 Rate of infusion (non-bolus) Infusing at 100 ml/hr, via pump tubing, IV SITE #1 on IV pump, Catheter placement confirmed via flush prior to administration, IV site without signs or symptoms of infiltration during medication administration, No swelling during administration, No drainage during administration, IV flushed after administration, Correct patient, time, route, dose and medication confirmed prior to administration, Patient advised of actions and side-effects prior to administration, Allergies confirmed and medications reviewed prior to administration, Patient in position of comfort, Side rails up, Cart in lowest position. : Follow Up : Response assessment performed, No signs or symptoms of allergic reaction noted, _IV SITE #1:_, IV fluid infusion continued upon transfer from emergency department, on SatMar 06, 2016 10:35, 55 minutes, ., Total amount infused: 95ML. (10:35 LGIB) HPI GENERAL (08:01 MBRI) CHIEF COMPLAINT: Patient presents for evaluation of 61 yo male presents for evaluation following an episode of pain in the back in the area of his left shoulder blade that radiated toward his neck. This pain lasted for several minutes but has resolved spontaneously prior to arrival. He also states that he was feeling some sob at home but that that improved when he went outside to come to the ED. He was released from the hospital on Saturday from an admission for n/v and hyponatremia. HISTORIAN: History provided by patient. MECHANISM OF INJURY: Unknown mechanism. LOCATION: No localizing symptoms. QUALITY: Unable to describe the quality of the pain. SEVERITY: Maximum severity of symptoms mild, Currently there are no symptoms. TIME COURSE: Gradual onset of symptoms, Symptoms have resolved, are intermittent. RELIEVED BY: Patient's condition relieved spontaneously. ROS (07:56 MBRI) CONSTITUTIONAL: Negative constitutional review of systems, Historian denies chills, denies fever. EYES: Negative eye review of systems. ENT: Historian denies rhinorrhea, denies sore throat. CARDIOVASCULAR: Historian denies chest pain, denies dyspnea on exertion. RESPIRATORY: Historian denies cough, denies shortness of breath. &a-1R&a+25V*p+0X*l7886K*c202B*c15G*c2P*p-0X&a-25V&a+1R Name: Berto Romo : 1955 M61 MedRec: [id number] AcctNum: [id number] Prepared: Elza Mar 06, 2016 10:46 by Interface Page 5 of 9 pMD [facility] EMERGENCY RECORD GI: Negative gastrointestinal review of systems, Historian denies abdominal pain, denies diarrhea, denies nausea, denies vomiting. GENITOURINARY MALE: Negative genitourinary review of systems. MUSCULOSKELETAL: Historian denies arthralgias, reports back pain, denies deformity, denies fall, denies injury, denies neck pain. Now resolved. SKIN: Negative skin review of systems, Historian denies skin changes. NEUROLOGIC: Historian denies dizziness, denies focal weakness, reports headache, denies mental status changes, denies paresthesias, denies sensory changes, denies speech changes, denies vertigo. Now resolved. PAST MEDICAL HISTORY (07:46 LGIB) MEDICAL HISTORY: Past medical history includes gastrointestinal disease, gastroesophageal reflux disease, Flu vaccine not up to date, Tetanus not up to date, Pneumococcal vaccine not up to date, Past medical history includes history of diabetes, hx of angioedema, Past medical history includes history of hypertension. verified 03/06/16. MALE SURGICAL HISTORY: H/O HEART CATH 20 YEARS PRIOR. verified 03/06/16. PSYCHIATRIC HISTORY: No previous psychiatric history verified 03/06/16. SOCIAL HISTORY: Patient denies alcohol use, Patient denies drug use, Patient has no smoking history. verified 03/06/16. PHYSICAL EXAM (07:56 MBRI) CONSTITUTIONAL: Vital Signs Reviewed, Nursing notes reviewed. HEAD: Head exam included findings of head atraumatic, normocephalic. EYES: Eye exam included findings of eyelids normal to inspection, Pupils equally round and reactive to light, Extraocular muscles intact. ENT: Ear exam normal, tympanic membranes normal, Nose exam normal, Pharynx exam normal, not injected. NECK: Neck exam normal, Neck exam included findings of normal range of motion, Trachea midline. RESPIRATORY CHEST: Respiratory exam included findings of no respiratory distress, Breath sounds clear, No wheezing, No rales, No rhonchi. CARDIOVASCULAR: Cardiovascular exam included findings of heart rate regular rate and rhythm, Heart sounds normal, Carotids normal. ABDOMEN MALE: Abdominal exam included findings of abdomen nontender, Bowel sounds normal, no distension, no peritoneal signs, no rigidity, no guarding, no rebound. BACK: Back exam included findings of normal inspection, no tenderness. UPPER EXTREMITY: Upper extremity exam included findings of inspection normal, Range of motion normal, Motor strength normal, &a-1R&a+25V*p+0X*v8030A*c202B*c15G*c2P*p-0X&a-25V&a+1R Name: Berto Romo : 1955 M61 MedRec: [id number] AcctNum: [id number] Prepared: Elza Mar 06, 2016 10:46 by Interface Page 6 of 9 pMD [facility] EMERGENCY RECORD Radial pulse normal, no cyanosis, no clubbing, no edema. LOWER EXTREMITY: Lower extremity exam included findings of inspection normal, Range of motion normal, Motor strength normal, Pedal pulse normal, no cyanosis, no clubbing, no edema. NEURO: Ilda coma scale 15, Neuro exam findings include patient oriented to person, place and time, Speech normal, Gait normal, Cranial nerves intact, no focal motor deficits, no focal sensory deficits, no cerebellar deficits. SKIN: Skin exam included findings of skin warm, dry, and normal in color, nummular lesions of various shape and size noted to the upper extremities. No infection noted. LAB INTERPRETATION (09:04 MBRI) INTERPRETATION: I reviewed the lab results. EVENTS TRANSFER: Triage to Emergency Triage. (SatMar 06, 2016 07:40 LGIB) Emergency Triage to Emergency Room -03. (07:40 LGIB) Removed from Emergency Emergency Room -03. (10:36 LGIB) O2SAT INTERPRETATION (07:59 MBRI) O2SAT: Oxygen saturation interpretation: Normal. DOCTOR NOTES (09:04 MBRI) TEXT: Pt with recurrent low Sodium and given the correction done 3 days ago I have rec admission and higher level of care for further evaluation. Pt stable for care and ground transfer. discussed with Dr Amin at [facility], accepted for further care. PATIENT STATUS: Patient has stabilized since arrival to emergency department. PATIENT PLAN: The patient requires a transfer and will be transferred, per physician request, due to availability of specialty care, Transfer form completed. DATA REVIEWED: Lab data reviewed. PROBLEM LIST No recorded problems DIAGNOSIS (09:02 MBRI) FINAL: PRIMARY: Hyponatremia. DISPOSITION PATIENT: Disposition Type: Transfer, Disposition: Transfer to [facility], Condition: Good. (09:02 MBRI) Patient left the department. (10:36 LGIB) PRESCRIPTION No recorded prescriptions &a-1R&a+25V*p+0X*b6081O*c202B*c15G*c2P*p-0X&a-25V&a+1R Name: Berto Romo : 1955 M61 MedRec: [id number] AcctNum: [id number] Prepared: SatMar 06, 2016 10:46 by Interface Page 7 of 9 pMD [facility] EMERGENCY RECORD IMAGING PHYSICIAN ORDERS: Image captured from scanner. (09:03 LGIB) PHYSICIAN CERTIFICATION STATEMENT: Image captured from scanner. (09:47 LGIB) *MEMORANDUM OF TRANSFER: Image captured from scanner. (09:47 LGIB) CONSENTS: Image captured from scanner. (09:47 LGIB) *SUPPLY CHARGE SHEET: Image captured from scanner. (10:36 LGIB) RESULTS (08:45 MBRI) LABORATORY: Lipase Collection DT: SatMar 06, 2016 08:11, Lipase 31 U/L, Range (8-78). Comprehensive Metabolic Panel Collection DT: SatMar 06, 2016 08:11, *Sodium 126 - L mmol/L, Range (136-145), Potassium 3.6 mmol/L, Range (3.5-5.1), *Chloride 92 - L mmol/L, Range (98-107), *Carbon Dioxide 22 - L mmol/L, Range (23-31), Anion Gap 16 mmol/L, Range (10-20), BUN (Urea Nitrogen) 9 mg/dL, Range (8.4-25.7), Creatinine 0.79 mg/dL, Range (0.7-1.3), Estimated GFR-MDRD Greater than 90 , Reference Range for Estimated GFR: Greater than 90, mL/min/1.73 m2 NOTE: The MDRD equation has not been validated for use, with the elderly (over 70 years of age), women, patients with, serious comorbid condition or persons with extremes of body size, muscle, mass, or nutritional status. , *Glucose 155 - H mg/dL, Range (80-115), Calcium 8.4 mg/dL, Range (7.8-10.44), *Bilirubin, Total 1.7 - H mg/dL, Range (0.2-1.2), Protein, Total 6.6 g/dL, Range (5.8-8.1), NOTE: Plasma values are generally 0.3 to 0.5 g/dL higher than serum values, due to the presence of fibrinogen. , Albumin 3.6 g/dL, Range (3.4-4.8), Globulin 3.0 g/dL, Range (2.4-3.5), Alb/Glob Ratio 1.2 g/dL, Range (1.2-2.2), Alkaline Phosphatase 73 U/L, Range (40-150), *AST (SGOT) 39 - H U/L, Range (5-34), ALT (SGPT) 47 U/L, Range (0-55). Urinalysis w/ Rflx Microscopic Collection DT: SatMar 06, 2016 08:11, Color Yellow , Range (Yellow), Clarity Clear , Range (Clear), Specific [place], Urine 1.010 , Range (1.005-1.030), pH, Urine 6.5 , Range (5.0-9.0), Leukocyte Negative , Range (Negative), Nitrite Negative , Range (Negative), Protein, Urine (Dipstick) Negative mg/dL, Range (Neg-Trace), &a-1R&a+25V*p+0X*b2447K*c202B*c15G*c2P*p-0X&a-25V&a+1R Name: Berto Romo : 1955 M61 MedRec: [id number] AcctNum: [id number] Prepared: SatMar 06, 2016 10:46 by Interface Page 8 of 9 pMD [facility] EMERGENCY RECORD *Glucose, Urine (Dipstick) 100 - H mg/dL, Range (Negative), Ketone, Urine Negative mg/dL, Range (Negative), Urobilinogen 0.2 mg/dL, Range (0.2-1.0), Bilirubin Negative , Range (Negative), Blood, Urine Negative , Range (Negative). CBC with Differential Collection DT: SatMar 06, 2016 08:11, White Blood Cell (WBC) Count 10.4 thou/uL, Range (4.8-10.8), Red Blood Cell (RBC) Count 4.82 mill/uL, Range (4.70-6.10), Hemoglobin 14.5 g/dL, Range (14.0-18.0), Hematocrit 43.9 %, Range (42.0-52.0), Mean Corpuscular Volume 91.1 fl, Range (80.0-94.0), Mean Corpuscular Hemoglobin 30.1 pg, Range (27.0-31.0), Mean Corpuscular HGB CONC 33.0 g/dL, Range (32.0-36.0), RBC Distribution Width 11.8 %, Range (11.5-14.5), Platelet Count 207 thou/uL, Range (130-400), Mean Platelet Volume 7.8 fL, Range (7.4-10.4), %Neutrophils 71.3 %, Range (42.0-75.0), *%Lymphocytes 18.1 - L %, Range (21.0-51.0), %Monocytes 8.2 %, Range (0.0-10.0), %Eosinophils 1.4 %, Range (0.0-10.0), %Basophils 1.0 %, Range (0.0-1.0), *#Neutrophils 7.4 - H thou/uL, Range (1.40-6.50), #Lymphocytes 1.9 thou/uL, Range (1.20-3.40), *#Monocytes 0.9 - H thou/uL, Range (0.11-0.59), #Eosinphils 0.1 thou/uL, Range (0.0-0.7), #Basophils 0.1 thou/uL, Range (0.0-0.2). Falk: ANGIEMI=SCOUT Gomez, Mally LGIB=SCOUT Kincaid, Aydee MBRI=DO Cunningham Matthew &a-1R&a+25V*p+0X*x2368J*c202B*c15G*c2P*p-0X&a-25V&a+1R Name: ClarissaBerto joyce : 1955 M61 MedRec: [id number] AcctNum: [id number] Prepared: Elza Mar 06, 2016 10:46 by Interface Page 9 of 9 pMD [facility]TDD
== END 2016-03-06 10:37 | disposition short-term general hospital (02) ==
LOC: BURERS 07:35
DX: E87.1 Hypo-osmolality and hyponatremia (principal); K21.9 Gastro-esophageal reflux disease without esophagitis; E11.9 Type 2 diabetes mellitus without complications; I10 Essential (primary) hypertension
CPT/HCPCS: 36415; 80053; 80061; 81003; 82533; 83690; 83930; 84300; 84443; 84588; 85025; 96360; 96361

== ENCOUNTER 2016-11-25 15:10 | Emergency (ER) | payer BC ==
[2016-11-25] MEDS ORDERED: predniSONE 20 MG TAB ONE (15:32)
[2016-11-25] MEDS ORDERED: diphenhydrAMINE HCl 25 MG CAP ONE (15:32)
== END 2016-11-25 15:39 | disposition home or self-care (01) ==
LOC: BURERS 15:10
DX: L50.0 Allergic urticaria (principal); E11.9 Type 2 diabetes mellitus without complications; I10 Essential (primary) hypertension; K21.9 Gastro-esophageal reflux disease without esophagitis; Z79.84 Long term (current) use of oral hypoglycemic drugs; Z79.899 Other long term (current) drug therapy
CPT/HCPCS: 99282; J7506

== ENCOUNTER 2017-05-27 02:42 | Emergency (ER) | payer BC ==
[2017-05-27] MEDS ORDERED: methylPREDNISolone Sod Succ/PF 125 MG/2 ML VIAL ONE (03:09)
[2017-05-27 03:42] LABS: #Basophils 0.1 thou/uL (0.0-0.2); #Eosinphils 0.1 thou/uL (0.0-0.7); #Lymphocytes 2.7 thou/uL (1.20-3.40); #Monocytes 0.6 thou/uL (0.11-0.59); %Basophils 0.6 % (0.0-1.0); %Eosinophils 1.1 % (0.0-10.0); %Lymphocytes 32.3 % (21.0-51.0); %Monocytes 7.1 % (0.0-10.0); %Neutrophils 58.9 % (42.0-75.0); Hemoglobin 16.2 g/dL (14.0-18.0); Mean Corpuscular HGB CONC 33.8 g/dL (32.0-36.0); Mean Corpuscular Hemoglobin 29.9 pg (27.0-31.0); Mean Corpuscular Volume 88.5 fl (80.0-94.0); Mean Platelet Volume 9.1 fL (7.4-10.4); Platelet Count 212 thou/uL (130-400); RBC Distribution Width 12.1 % (11.5-14.5); Red Blood Cell (RBC) Count 5.43 mill/uL (4.70-6.10); White Blood Cell (WBC) Count 8.5 thou/uL (4.8-10.8)
[2017-05-27 03:58] LABS: ALT (SGPT) 31 U/L (8-55); AST (SGOT) 23 U/L (5-34); Albumin 3.8 g/dL (3.4-4.8); Alkaline Phosphatase 74 U/L (40-150); Anion Gap 12 mmol/L (10-20); BUN (Urea Nitrogen) 19 mg/dL (8.4-25.7); Bilirubin, Total 0.5 mg/dL (0.2-1.2); Calc. Creatinine Clearance 0 mL/min (70-130); Calcium 9.4 mg/dL (7.8-10.44); Carbon Dioxide 28 mmol/L (23-31); Chloride 102 mmol/L (98-107); Estimated GFR-MDRD Greater than 90; Globulin 3.1 g/dL (2.4-3.5); Glucose 167 mg/dL (80-115); Potassium 4.3 mmol/L (3.5-5.1); Protein, Total 6.9 g/dL (5.8-8.1); Sodium 138 mmol/L (136-145)
== END 2017-05-27 04:06 | disposition home or self-care (01) ==
LOC: BURERS 02:42
DX: L50.0 Allergic urticaria (principal); M06.9 Rheumatoid arthritis, unspecified; K21.9 Gastro-esophageal reflux disease without esophagitis; E11.9 Type 2 diabetes mellitus without complications; I10 Essential (primary) hypertension; Z79.899 Other long term (current) drug therapy; Z79.84 Long term (current) use of oral hypoglycemic drugs
CPT/HCPCS: 36415; 80053; 85025; 96374; J2930